=== PATIENT | female | born 1950 | race Caucasian/White ===

== ENCOUNTER 2022-10-06 08:36 | Outpatient (REF) | payer MEDICARE, SELFPAY ==
[2022-10-06 12:11] LABS: Hematocrit 44.6 % (37.0-47.0); Hemoglobin 14.8 g/dl (12.0-16.0); Mean Corpuscular HGB Conc 33.2 g/dl (31.0-35.0); Mean Corpuscular Hemoglobin 30.8 pg (27.0-33.0); Mean Corpuscular Volume 92.7 fL (80.0-98.0); PLT CLUMP 1; Red Blood Count 4.81 X10*6/uL (4.20-5.50); Red Cell Distribution Width 13.4 % (11.0-16.0)
[2022-10-06 12:46] LABS: Alanine Aminotransferase 19 U/L (0-31); Albumin Level 4.2 g/dL (3.5-5.0); Alkaline Phosphatase 55 U/L (39-117); Anion Gap 15 (12-20); Aspartate Amino Transferase 19 U/L (5-31); Bilirubin Total 0.5 mg/dL (0.0-1.0); Blood Urea Nitrogen 14 mg/dL (9-16); Calcium 9.2 mg/dL (8.4-10.2); Carbon Dioxide 26 mmol/L (22-29); Chloride 106 mmol/L (96-108); Cholesterol 195 mg/dL; Estimated Glomerular Filt Rate > 60; Glucose Fasting 103 mg/dL (60-99); HDL Cholesterol 45 mg/dL; LDL Cholesterol Calculated 138 mg/dl; Potassium 4.3 mmol/L (3.3-5.1); Sodium 143 mmol/L (135-145); Total Protein 6.6 g/dL (6.5-8.0); Triglycerides 63 mg/dL
[2022-10-06 12:56] LABS: White Blood Count 7.5 X10*3/uL (4.8-10.8)
[2022-10-06 13:04] LABS: TSH reflex Free T4 2.84 uIU/mL (0.32-4.0)
[2022-10-11 16:03] LABS: Vitamin D 25-OH, D2 <4 ng/mL; Vitamin D 25-OH, D3 34 ng/mL; Vitamin D 25-OH, Total 34 ng/mL (30-100)
== END 2022-10-06 08:37 | disposition home or self-care (01) ==
LOC: HO.WFDLDS 08:36
PROVIDERS: Visit Provider Hospitalist
DX: Z00.00 Encounter for general adult medical examination without abnormal findings (principal); E66.9 Obesity, unspecified; E03.9 Hypothyroidism, unspecified; E55.9 Vitamin D deficiency, unspecified; I10 Essential (primary) hypertension
CPT/HCPCS: 36415; 80053; 80061; 82306; 84443; 85027

== ENCOUNTER 2022-10-13 08:57 | Outpatient (REF) | payer MEDICARE, SELFPAY ==
[2022-10-13 13:26] LABS: Platelet Count (Citrate) 165 X10*3/uL (150-310)
== END 2022-10-13 08:58 | disposition home or self-care (01) ==
LOC: HO.WFDLDS 08:57
PROVIDERS: Visit Provider Hospitalist
DX: R89.9 Unspecified abnormal finding in specimens from other organs, systems and tissues (principal)
CPT/HCPCS: 36415

== ENCOUNTER 2022-11-15 10:16 | Outpatient (REF) | payer MEDICARE, SELFPAY ==
--- NOTE | ~2022-11-15 | MM_ITS ---
EXAMINATION: MM SCREENING DIGITAL BREAST TOMOSYNTHESIS, BILATERAL CLINICAL INFORMATION: Screening. Asymptomatic. The lifetime risk of breast cancer based on the Tyrer-Cuzick Model is 4%. COMPARISON: Outside mammography 07/27/2020, 09/19/2018, 07/19/2017 ([facility]). TECHNIQUE: Digital breast tomosynthesis is performed in both the craniocaudal and mediolateral oblique views along with computer-aided detection (CAD). Synthesized 2D images are generated from the tomosynthesis. Additional left MLO view is provided. FINDINGS: There are scattered areas of fibroglandular density (ACR BI-RADS breast composition Category b). There are no significant masses, abnormal calcifications, or other abnormalities. Parenchymal pattern is similar to prior studies. There is no developing density or architectural abnormality. The axilla and skin contours are unremarkable. No significant changes. MM/MM tomosynthesis screening BI IMPRESSION: No mammographic evidence of malignancy. ASSESSMENT: BI-RADS 1: Negative RECOMMENDATION: Routine annual mammography screening. This patient's information was entered into a reminder system with a target due date for their next mammogram.
== END 2022-11-15 10:17 | disposition home or self-care (01) ==
LOC: HO.MAMMO 10:16
PROVIDERS: PCP Hospitalist; Visit Provider Hospitalist
DX: Z12.31 Encounter for screening mammogram for malignant neoplasm of breast (principal)
CPT/HCPCS: 77063; 77067

== ENCOUNTER 2023-04-15 11:00 | Outpatient (AMB) | payer MEDICARE, SELFPAY ==
[2023-04-15 11:04] VITALS: BP 140/88; PULSE 66; O2SAT 99; BMI 35.7
--- NOTE | 2023-04-15 11:04 | MHC.PC.OV ---
Vital Signs 04/15/23 11:04 Height 5 ft Weight 183 lb BMI 35.7 BP 140/88 H Blood Pressure Location Lt brachial Position Sitting Pulse 66 Pulse Source Pulse Oximeter Pulse Oximetry (%) 99 Oxygen Delivery Method Room Air Intake Visit Reasons: asthma and htn Intake Note: Patient is here for follow up on asthma and hypertension. Patient would like refill of her Combivent, also today. Allergies Sulfa (Sulfonamide Antibiotics) [SULFA(SULFONAMIDE ANTIBIOTICS)] Allergy (Unknown, Unverified 04/15/23 11:09) RASH Tobacco use date assessed: 04/15/23 Fall risk assessment: No Falls in past year Last assessed Fall Risk: 04/15/23 Dental Screening Dental Screen Date: 04/15/23 Did you have a dental visit in the last 12 months?: Yes Did you have a dental problem in the last 6 months where you did not have access to dental care?: No Was dental information given to patient?: Patient has dentist HPI asthma and htn HPI Details 72 y/o female presents to f/u hypertension and asthma. Blood pressure today 140/88. Pt reports she has not been treated with a BP medication before. She does report she has been stressed all year. PMhx: Asthmatic Bronchitis. Stress. HTN. FHx: Mom: CAD, HTN, COPD. Dad: Acytoblastic Anemia. Aunt: Lupus. Soc Hx: Quit cigs age 26. EtOH: Once a year. PFSH Medical History Arthritis Thyroid disease Hypertension Asthma Social History Housing: House Patient Tobacco Use Status: Former Tobacco user (45 years of not smoking) e-Cigarette/Vaping Use: Never Used service: No Current occupational status: retired Cognitive needs: No Hearing needs: No Vision needs: Yes (Patient wears reading glasses.) Questionnaire Thrive Questionnaire Date Thrive assessed: 09/27/22 TOPHER-7 AMB Questionnaire TOPHER-7 Date TOPHER - 7 assessed: 09/27/22 Source: Developed by Drs. kT Israel, Piedad Bass, Wilfredo Valladares and colleagues, with an educational rene from [employer]. ACT Questionnaire In the past 4 weeks, how much of the time did your asthma keep you from getting as much done at work, school or at home?: None of the time During the past 4 weeks, how often have you had shortness of breath?: Not at all (3 times in the month) During the past 4 weeks, how often did your asthma symptoms wake you up at night or earlier than usual in the morning?: Not at all During the past 4 weeks, how often have you had to use your rescue inhaler or nebulizer medication?: Not at all (twice) How would you rate your asthma control during the past 4 weeks?: Well controlled Score: 24 Review of Systems Const Denies chills, Denies fatigue, Denies fever(s), Denies headache(s) and Denies weakness ENT Denies dizziness and Denies headache(s) Card Denies chest pain, Denies lightheadedness, Denies dyspnea and Denies other (Palpitations) Resp Denies cough, Denies dyspnea, Denies wheezing and Denies other ( shortness of breath) Musc Denies numbness and Denies tingling Neuro Denies dizziness, Denies headache(s), Denies numbness, Denies tingling, Denies paresthesias and Denies weakness Psych Denies anxiety and Denies depression Endo Denies fatigue Aller/Immun Denies wheezing Physical exam (Primary Care) Vital Signs: Last Vital Signs Pulse 66 04/15/23 11:04 BP 140/88 H 04/15/23 11:04 Pulse Ox 99 04/15/23 11:04 Oxygen Delivery Method Room Air 04/15/23 11:04 BMI result Body Mass Index 35.7 Tobacco/Smoking Status: Tobacco use Status Tobacco use date assessed 04/15/23 04/15/23 11:19 Patient Tobacco Use Status Former Tobacco user (45 04/15/23 11:19 years of not smoking) e-Cigarette/Vaping Use Never Used 04/15/23 11:19 Thrive Assessment: Date of Thrive Assessment Date Thrive assessed 09/27/22 04/15/23 11:19 Const General: no acute distress and well developed Nutritional Appearance: well nourished Orientation/consciousness: patient oriented x3 HENMT Head: Yes normocephalic and Yes atraumatic Eyes General: appearance normal, both eyes and all related structures Pupils: Equal, round and reactive pupils present EOM: EOMs intact bilaterally Resp Effort & Inspection: normal respiratory effort Auscultation: clear to auscultation bilaterally Cardio Rate: regular rate Rhythm: regular rhythm Heart sounds: S1 normal heart sound present, S2 normal heart sound present, no gallops, no murmurs and no rubs Neuro General: patient oriented x3 and gait normal Cranial nerves: Yes Equal, round and reactive pupils present Psych Affect: normal affect Assessment and Plan Assessment & Plan (1) Hypertension: Code(s): I10 - Essential (primary) hypertension Plan: Blood?pressure?again?in?hypertensive?range. Will?start?lisinopril. (2) Asthma: Code(s): J45.909 - Unspecified asthma, uncomplicated Plan: History?of?asthma/asthmatic?bronchitis Patient?does?not?smoke Lungs?are?clear Continue?Combivent.??Gave?patient?an?albuterol?inhaler?as?well (3) Hypothyroidism (acquired): Code(s): E03.9 - Hypothyroidism, unspecified Plan: History?of?hypothyroidism?and?she?is?on?levothyroxine. Check?labs Orders: Orders Complete Blood Count Auto Diff Today Z00.00 - Encounter for general adult medical examination without abnormal findings Microalbumin, Random (w Creat) Today I10 - Essential (primary) hypertension Lipid Panel Today Z00.00 - Encounter for general adult medical examination without abnormal findings Triiodothyronine T3 Total Today E03.9 - Hypothyroidism, unspecified Thyroid Stimulating Hormone Today E03.9 - Hypothyroidism, unspecified Free T4 (Free Thyroxine) Today E03.9 - Hypothyroidism, unspecified Vitamin D 25-OH Total Today E55.9 - Vitamin D deficiency, unspecified Comprehensive [place]. Panel Fast Today Z00.00 - Encounter for general adult medical examination without abnormal findings UA and rflx microscopic Today Z00.00 - Encounter for general adult medical examination without abnormal findings Medications: New lisinopril 10 mg PO DAILY 90 tabs 2RF 90 days albuterol sulfate 90 mcg/actuation (ProAir HFA) 2 puffs inhalation Q4-6H PRN 8.5 grams 0RF shortness of breath or wheezing 30 days Refilled Combivent Respimat 20-100 mcg/actuation (ipratropium-albuterol) 1 puff PO Q6H 4 grams 3RF NS Coding Level of Care Code Est Pt Level 3 (32891) Diagnoses Hypertension I10 Asthma J45.909 Hypothyroidism (acquired) E03.9
== END 2023-04-15 11:49 | disposition home or self-care (01) ==
PROVIDERS: PCP Hospitalist; Visit Provider Family Medicine
DX: I10 Essential (primary) hypertension (principal); J45.909 Unspecified asthma, uncomplicated; E03.9 Hypothyroidism, unspecified
CPT/HCPCS: 99213

== ENCOUNTER 2023-07-25 11:47 | Outpatient (AMB) | payer MEDICARE, SELFPAY ==
--- NOTE | 2023-07-25 11:49 | MHC.PC.OV ---
Vital Signs 07/25/23 12:08 Height 5 ft Weight 177 lb BMI 34.6 BP 128/64 Blood Pressure Location Lt brachial Position Sitting Respiration 13 Pulse 76 Pulse Source Pulse Oximeter Pulse Oximetry (%) 98 Oxygen Delivery Method Room Air Intake Visit Reasons: CPE with f/u labs and health maint. Intake Note: Patient is here for her physical and she reports she has her usual pains and whatever else there is. Patient reports since taking the lisinopril she has notice shes urinating a lot more often. Psychiatric Tech Required: No Accompanied by: Self / Same As Patient Allergies Sulfa (Sulfonamide Antibiotics) [SULFA(SULFONAMIDE ANTIBIOTICS)] Allergy (Unknown, Verified 07/25/23 12:12) RASH Tobacco use date assessed: 07/25/23 Fall risk assessment: No Falls in past year Last assessed Fall Risk: 07/25/23 Dental Screening Dental Screen Date: 07/25/23 Did you have a dental visit in the last 12 months?: Yes Did you have a dental problem in the last 6 months where you did not have access to dental care?: No Was dental information given to patient?: Patient has dentist HPI CPE with f/u labs and health maint. HPI Details 72 y/o female presents for a CPE with f/u labs and health maintenance. No recent labs to review. Last set of labs drawn in September. Blood pressure today 128/64. She is on lisinopril 10mg daily. She feels lisinopril is causing issues with frequent urination. She walks for exercise 3x a week. Last mammogram 11/15/22 and was fine. Pt reports last colonoscopy was at [facility] and had been a long time ago. [facility] Medical History Arthritis Thyroid disease Hypertension Asthma Surgical History (Updated 07/25/23 @ 12:14 by Jacklyn Zhu CMA) No pertinent past surgical history Social History (Updated 07/25/23 @ 12:17 by Jacklyn Zhu CMA) Household Members: Spouse and Children Both parents involved: No Caregiver staying overnight: No Housing: House Are you a primary career coach to a significant other at home: No Do you presently have visiting nurse or other home services: No 75 years or older and lives alone: No Alcohol intake: current Alcohol intake frequency: holidays/special occasions only Alcohol type: beer Patient Tobacco Use Status: Former Tobacco user (45 years of not smoking) e-Cigarette/Vaping Use: Never Used service: No Current occupational status: retired Current occupational exposures/hazards: No Sexual orientation: Unable to collect Gender identity: Unable to collect Cognitive needs: No Hearing needs: No Vision needs: Yes (Patient wears reading glasses.) Questionnaire PHQ-9 Over the last 2 weeks, how often have you been bothered by any of the following problems? 1. Little interest or pleasure in doing things: not at all 2. Feeling down, depressed, or hopeless: not at all 3. Trouble falling or staying asleep, or sleeping too much: nearly every day (staying asleep) 4. Feeling tired or having little energy: not at all 5. Poor appetite or overeating: several days 6. Feeling bad about yourself - or that you are a failure or have let yourself or your family down: not at all 7. Trouble concentrating on things, such as reading the newspaper or watching television: not at all 8. Moving or speaking so slowly that other people could have noticed. Or the opposite - being so fidgety or restless that you have been moving around a lot more than usual: not at all 9. Thoughts that you would be better off or of hurting yourself in some way: not at all Total score: 4 Depression Screening Interpretation: Negative Depression Screening Done: Yes 70224 - PHQ-9 Billing: Yes Source: Developed by Drs. Tk Israel, Piedad Bass, Wilfredo Valladares and colleagues, with an educational rene from [employer]. Thrive Questionnaire Date Thrive assessed: 09/27/22 TOPHER-7 AMB Questionnaire TOPHER-7 Date TOPHER - 7 assessed: 07/25/23 Feeling nervous, anxious, or on edge: 0 = Not at all Not being able to stop or control worryin = Not at all Worrying too much about different things: 0 = Not at all Trouble relaxin = Not at all Being so restless that it is hard to sit still: 3 = Nearly every day Becoming easily annoyed or irritable: 1 = Several days Feeling afraid as if something awful might happen: 0 = Not at all Total TOPHER-7 score (0-4 normal; 5-9 mild; 10-14 moderate; 15-21 severe): 4 Source: Developed by Drs. Tk Israel, Piedad Bass, Wilfredo Valladares and colleagues, with an educational rene from [employer]. TOPHER-7 Assessment Billing TOPHER-7 Assessment Tool: TOPHER-7 Assessment [id number] Review of Systems Const Denies chills, Denies fatigue, Denies fever(s), Denies headache(s) and Denies weakness Eyes Denies change in vision ENT Denies dizziness, Denies headache(s), Denies hearing loss, Denies nasal congestion, Denies sinus pain, Denies sinus pressure and Denies sore throat Card Denies chest pain, Denies lightheadedness, Denies dyspnea and Denies other (palpitations) Resp Denies cough, Denies dyspnea and Denies wheezing GI Denies abdominal pain, Denies melena, Denies hematochezia, Denies change in bowel habits, Denies dyspepsia and Denies nausea Denies hematuria and Denies dysuria Musc Denies abnormal gait, Denies myalgias, Denies arthralgias, Denies numbness and Denies tingling Skin/Breast Denies rash, Denies unusual bruising and Denies wounds Neuro Denies abnormal gait, Denies dizziness, Denies headache(s), Denies memory loss, Denies numbness, Denies Sensory deficit (Neuro), Denies tingling and Denies weakness Psych Denies anxiety, Denies depression and Denies memory loss Endo Denies cold intolerance, Denies fatigue, Denies heat intolerance, Denies polydipsia and Denies polyuria Alireza/Lymph Denies easy bleeding and Denies easy bruising Aller/Immun Denies wheezing Physical exam (Primary Care) Vital Signs: Last Vital Signs Pulse 76 07/25/23 12:08 Resp 13 07/25/23 12:08 BP 128/64 07/25/23 12:08 Pulse Ox 98 07/25/23 12:08 Oxygen Delivery Method Room Air 07/25/23 12:08 BMI result Body Mass Index 34.6 Tobacco/Smoking Status: Tobacco use Status Tobacco use date assessed 07/25/23 07/25/23 12:22 Patient Tobacco Use Status Former Tobacco user (45 07/25/23 12:17 years of not smoking) e-Cigarette/Vaping Use Never Used 07/25/23 12:17 PHQ-9: PHQ-9 Score PHQ-9: Total score 4 07/25/23 12:49 Depression Screening Interpretation: Negative Thrive Assessment: Date of Thrive Assessment Date Thrive assessed 09/27/22 07/25/23 11:49 Const General: no acute distress, well developed, alert and awake Nutritional Appearance: well nourished Orientation/consciousness: patient oriented x3 HENMT Head: Yes normocephalic and Yes atraumatic Ears: hearing grossly normal bilaterally and TM's normal bilaterally General nose exam: Normal external nose present and Normal nares present Mouth: Normal oral and palatal mucosa present and moist mucous membranes Teeth and gingiva: dentition normal Throat: Yes posterior oropharynx normal Eyes General: appearance normal, both eyes and all related structures Pupils: Equal, round and reactive pupils present and Pupil accommodation reflex normal EOM: EOMs intact bilaterally Neck Neck: Yes normal visual inspection, Yes no lymphadenopathy and Yes trachea midline Thyroid: Thyroid normal Carotids: no bruits Lymphatic: no lymphadenopathy noted Chest Chest palpation & inspection: normal inspection of the chest Resp Effort & Inspection: normal respiratory effort Auscultation: clear to auscultation bilaterally Cardio Rate: regular rate Rhythm: regular rhythm Heart sounds: S1 normal heart sound present, S2 normal heart sound present, no gallops, no murmurs and no rubs Bruits: no abdominal aortic bruits and no carotid bruits GI Palpation (GI): No Abdominal aortic bruit present, Soft to palpation, nontender, No hepatosplenomegaly present and No Rebound tenderness present Auscultation: normal bowel sounds General: Yes no CVA tenderness Back/Spine/Pelvis Back: no CVA tenderness Cervical Spine: cervical ROM normal and No Cervical spine tenderness Thoracic/Lumbar Spine: thoraco-lumbar ROM normal, No pain with thoraco-lumbar ROM, No thoracic spinal tenderness and No lumbar spinal tenderness Skin Lesions: no lesions Rashes: no rashes Trauma: no lacerations or abrasions Wounds: no wounds Nails: normal Neuro General: patient oriented x3 Cranial nerves: Yes Equal, round and reactive pupils present Cognition (Neuro): normal cognition Gait exam (Neuro): Normal gait present Motor exam (neuro): 5/5 motor strength present throughout Sensory Exam: No Sensory deficit (Neuro) Deep tendon reflexes (DTR's): Right patellar reflex intensity grade: 2+ and Left patellar reflex intensity grade: 2+ Extrem General: Yes normal to inspection and No edema Psych Appearance: grossly normal Affect: normal affect Attitude: cooperative Thought process: Normal thought process present Assessment and Plan Assessment & Plan (1) Adult general medical exam: Code(s): Z00.00 - Encounter for general adult medical examination without abnormal findings Plan: 72-year-old?female?presents?for?complete?physical?exam Encouraged?healthy?diet?with?active?lifestyle?and?plenty?of?exercise (2) Hypertension: Code(s): I10 - Essential (primary) hypertension Plan: Blood?pressure?is?controlled?but?she?feels?that?the?lisinopril?is?causing?issues?with?frequent?urination. Will?switch?to?losartan (3) Screening mammogram for breast cancer: Code(s): Z12.31 - Encounter for screening mammogram for malignant neoplasm of breast Plan: Last?mammogram?May?2022 Repeat?mammogram?in?November?2023 (4) Screening for colon cancer: Code(s): Z12.11 - Encounter for screening for malignant neoplasm of colon Plan: Patient?thinks?she?had?her?[facility] Will?request?report (5) Screening for osteoporosis: Code(s): Z13.820 - Encounter for screening for osteoporosis Plan: Last?bone?density?test?greater?than?2?years?ago Bone?density?test?ordered Orders: Orders Thyroid Stimulating Hormone Today E03.9 - Hypothyroidism, unspecified UA and rflx microscopic Today Z00.00 - Encounter for general adult medical examination without abnormal findings Vitamin D 25-OH Total Today E55.9 - Vitamin D deficiency, unspecified XR DEXA axial skeleton Today M81.0 - Age-related osteoporosis without current pathological fracture Comprehensive [place]. Panel Fast Today Z00.00 - Encounter for general adult medical examination without abnormal findings Microalbumin, Random (w Creat) Today I10 - Essential (primary) hypertension Lipid Panel Today Z00.00 - Encounter for general adult medical examination without abnormal findings Hemoglobin A1c Today R73.01 - Impaired fasting glucose Free T4 (Free Thyroxine) Today E03.9 - Hypothyroidism, unspecified Triiodothyronine T3 Total Today E03.9 - Hypothyroidism, unspecified MM tomosynthesis screening BI Today Z12.31 - Encounter for screening mammogram for malignant neoplasm of breast Medications: New losartan 50 mg PO DAILY 90 tabs 2RF 90 days Discontinued lisinopril Discontinued Reason: Doctor's Order 10 mg PO DAILY 90 days 90 tabs 2RF Coding Level of Care Code Est Pt Level 3 (15253) Est Pt Prev Care >65y(59526) Diagnoses Adult general medical exam Z00.00 Hypertension I10 Screening mammogram for breast cancer Z12.31 Screening for colon cancer Z12.11 Screening for osteoporosis Z13.820 Additional Codes TOPHER-7 Assessment Billing - TOPHER-7 Assessment Tool: TOPHER-7 Assessment 95233 ([id number])
[2023-07-25 12:08] VITALS: BP 128/64; PULSE 76; RESP 13; O2SAT 98; BMI 34.6
== END 2023-07-25 13:04 | disposition home or self-care (01) ==
PROVIDERS: PCP Hospitalist; Visit Provider Family Medicine
DX: Z00.00 Encounter for general adult medical examination without abnormal findings (principal); I10 Essential (primary) hypertension; Z12.31 Encounter for screening mammogram for malignant neoplasm of breast; Z12.11 Encounter for screening for malignant neoplasm of colon; Z13.820 Encounter for screening for osteoporosis
CPT/HCPCS: 99213; 99397

== ENCOUNTER 2023-08-08 08:22 | Outpatient (REF) | payer MEDICARE, SELFPAY ==
[2023-08-08 12:16] LABS: Estimated Average Glucose 114 mg/dL; Hemoglobin A1c % 5.6 % (<6.0)
[2023-08-08 12:29] LABS: Alanine Aminotransferase 13 U/L (0-31); Albumin Level 4.2 g/dL (3.5-5.0); Alkaline Phosphatase 53 U/L (39-117); Anion Gap 11 (12-20); Aspartate Amino Transferase 15 U/L (5-31); Bilirubin Total 0.5 mg/dL (0.0-1.0); Blood Urea Nitrogen 13 mg/dL (9-16); Calcium 9.5 mg/dL (8.4-10.2); Carbon Dioxide 29 mmol/L (22-29); Chloride 105 mmol/L (96-108); Cholesterol 200 mg/dL (<200); Estimated Glomerular Filt Rate > 60; Free T4 (Free Thyroxine) 1.09 ng/dL (0.71-1.85); Glucose Fasting 110 mg/dL (60-99); HDL Cholesterol 49 mg/dL (>40); LDL Cholesterol Calculated 130 mg/dL (<100); Potassium 4.3 mmol/L (3.3-5.1); Sodium 141 mmol/L (135-145); Total Protein 6.9 g/dL (6.5-8.0); Triglycerides 106 mg/dL (<150); Vitamin D 25-OH Total 94.3 ng/mL (>30)
[2023-08-08 14:21] LABS: Appearance Urine Clear; Color Urine Yellow; Glucose Urine UA Negative (Negative); Leukocyte Esterase Urine Negative (Negative); Nitrite Urine Negative (Negative); PH 8.5 (5.0-9.0); Specific Gravity - Urine 1.015 (1.005-1.025); Urine Blood Negative (Negative); Urine Ketones Negative (Negative); Urine Protein Negative (Neg-Trace)
[2023-08-08 15:41] LABS: Creatinine Urine 125.87 mg/dL; Microalbum/Creatinine Ratio Ur 4.7 ug/mg cr (<30)
[2023-08-09 11:23] LABS: Triiodothyronine T3 Total 103 ng/dL (76-181)
== END 2023-08-08 08:23 | disposition home or self-care (01) ==
LOC: HO.WFDLDS 08:22
PROVIDERS: Visit Provider Family Medicine
DX: Z00.00 Encounter for general adult medical examination without abnormal findings (principal); E03.9 Hypothyroidism, unspecified; I10 Essential (primary) hypertension; R73.01 Impaired fasting glucose; E55.9 Vitamin D deficiency, unspecified
CPT/HCPCS: 36415; 80053; 80061; 81003; 82043; 82306; 82570; 83036; 84439; 84443; 84480

== ENCOUNTER 2023-08-17 12:39 | Outpatient (REF) | payer MEDICARE, SELFPAY ==
--- NOTE | ~2023-08-17 | MM_ITS ---
EXAMINATION: BONE DENSITOMETRY CLINICAL INDICATION: Age-related osteoporosis without current pathological fracture. COMPARISON: This is the patient's baseline examination. TECHNIQUE: Using a [employer] DXA System (software version: 13.1) manufactured by [employer], dual-energy x-ray absorptiometry was performed of the lumbar spine and left hip. The images are of good technical quality. Summary results are attached. FINDINGS: AP SPINE L1-L4: BMD 1.334 g/cm2, Z-score 2.5, T-score 1.3, normal. LEFT FEMUR, NECK: BMD 0.746 g/cm2, Z-score -0.6, T-score -2.1, osteopenia. LEFT FEMUR, TOTAL: BMD 0.867 g/cm2, Z-score 0.1, T-score -1.1, osteopenia. IDENTIFIED RISK FACTORS: Height loss. Menopause. HISTORY OF FRACTURE: None listed. MEDICATIONS: Calcium supplement and/or multivitamin. Vitamin D. MM/XR DEXA axial skeleton IMPRESSION: 1. DIAGNOSIS: Osteopenia based on the lowest T-score value of -2.1 in the femoral neck applying World Health Organization criteria. 2. 10-YEAR FRACTURE RISK PREDICTION, FRAX: Major osteoporotic fracture (clinical spine, forearm, hip or shoulder) 12.3%. Hip fracture 2.8%. 3. Treatment Recommendations: NOF guidelines recommend consideration for treatment in postmenopausal women and men age 50 and older presenting with the following: -A hip or vertebral (clinical or morphometric) fracture. -T-score less than or equal to -2.5 at the femoral neck or spine after appropriate evaluation to exclude secondary causes. -Low bone mass at the hip or spine and a 10-year fracture probability by FRAX of greater than or equal to 3% for hip fracture or greater than or equal to 20% for major osteoporotic fracture based on the [place] adapted WHO algorithm. 4. Other Recommendations: All treatment decisions require clinical judgment and consideration of individual patient factors, including patient preferences, comorbidities, previous drug use, risk factors not captured in the FRAX model (e.g. frailty, falls, vitamin D deficiency, increased bone turnover, interval significant decline in bone density) and possible under or overestimation of fracture risk by FRAX. Additional medical evaluation for secondary cause of low bone mineral density may be appropriate. FUTURE SCAN RECOMMENDATION: People with diagnosed cases of osteoporosis or at high risk for fracture should have regular bone mineral density tests. For patients eligible for Medicare, routine testing is allowed once every 2 years. The testing frequency can be increased to one year for patients who have rapidly progressing disease, those who are receiving or discontinuing medical therapy to restore bone mass, or have additional risk factors.
== END 2023-08-17 12:40 | disposition home or self-care (01) ==
LOC: HO.MAMMO 12:39
PROVIDERS: PCP Family Medicine; Visit Provider Family Medicine
DX: Z13.820 Encounter for screening for osteoporosis (principal); Z78.0 Asymptomatic menopausal state; M81.0 Age-related osteoporosis without current pathological fracture
CPT/HCPCS: 77080

== ENCOUNTER 2023-08-25 16:31 | Outpatient (AMB) | payer MEDICARE, SELFPAY ==
--- NOTE | 2023-08-25 16:27 | MHC.PC.OV ---
Intake Visit Reasons: f/u CPE-labs Intake Note: Patient is calling to follow up on labs Allergies Sulfa (Sulfonamide Antibiotics) [SULFA(SULFONAMIDE ANTIBIOTICS)] Allergy (Unknown, Verified 08/25/23 16:28) RASH Tobacco use date assessed: 08/25/23 Fall risk assessment: No Falls in past year Last assessed Fall Risk: 08/25/23 Dental Screening Dental Screen Date: 08/25/23 Did you have a dental visit in the last 12 months?: Yes Did you have a dental problem in the last 6 months where you did not have access to dental care?: No Was dental information given to patient?: Patient has dentist HPI f/u CPE-labs HPI Details 72 y/o female presents to f/u CPE-labs via telemedicine. Labs were drawn 08/08/23. Reviewed labs with pt. Elevated fasting glucose of 110 and A1c 5.6%. Triglycerides 106. TC 200. LDL 130. HDL 49. She reports she has a cold today. She states her losartan has been working better for her than lisinopril. [facility] Medical History Arthritis Thyroid disease Hypertension Asthma Surgical History No pertinent past surgical history Social History Household Members: Spouse and Children Both parents involved: No Caregiver staying overnight: No Housing: House Are you a primary senior care assistant to a significant other at home: No Do you presently have visiting nurse or other home services: No 75 years or older and lives alone: No Alcohol intake: current Alcohol intake frequency: holidays/special occasions only Alcohol type: beer Patient Tobacco Use Status: Former Tobacco user (45 years of not smoking) e-Cigarette/Vaping Use: Never Used service: No Current occupational status: retired Current occupational exposures/hazards: No Sexual orientation: Unable to collect Gender identity: Unable to collect Cognitive needs: No Hearing needs: No Vision needs: Yes (Patient wears reading glasses.) Questionnaire Thrive Questionnaire Date Thrive assessed: 09/27/22 TOPHER-7 AMB Questionnaire TOPHER-7 Date TOPHER - 7 assessed: 07/25/23 Source: Developed by Drs. Tk LPiedad Kincaid Kurt Kroenke and colleagues, with an educational rene from [employer]. Physical exam (Primary Care) Tobacco/Smoking Status: Tobacco use Status Tobacco use date assessed 08/25/23 08/25/23 16:30 Patient Tobacco Use Status Former Tobacco user (45 08/25/23 16:30 years of not smoking) e-Cigarette/Vaping Use Never Used 08/25/23 16:30 Thrive Assessment: Date of Thrive Assessment Date Thrive assessed 09/27/22 08/25/23 16:30 Telehealth Telehealth Location of provider rendering services: practice address Location of patient: address on file Patient Identification confirmed using: Name, : Yes Telehealth method: voice only Patient verbally consented to treatment: Yes Patient verbally consented to billing insurance company: Yes Patient informed of any privacy concerns related to visit: Yes Minutes spent on Phone/Video with Pt.: 9 Assessment and Plan Assessment & Plan (1) Viral illness: Code(s): B34.9 - Viral infection, unspecified Plan: Patient?notes?mild?cold?which?seems?to?be?getting?better Encouraged?plenty?of?fluids?and?plenty?of?rest (2) Hypercholesterolemia: Code(s): E78.00 - Pure hypercholesterolemia, unspecified Plan: TC?and?LDL?cholesterol?borderline HDL?ratios?are?good?and?triglycerides?are?in?normal?range No?indication?at?this?point?for?a?medication-advised?diet?lower?in?saturated?fats?and?cholesterol (3) Elevated fasting glucose: Code(s): R73.01 - Impaired fasting glucose Plan: She?has?had?mildly?elevated?fasting?blood?sugars?and?I ordered?an?A1c?which?was?5.6%;?top-normal Encouraged?a?diet?lower?in?sugars?and?starches Encouraged?exercise?and?weight?control. (4) Hypertension: Code(s): I10 - Essential (primary) hypertension Plan: Blood?pressure?at?home?appears?controlled.??I?had?switched?her?lisinopril?to?losartan?due?to?adverse?effects. Patient?notes?that?she?is?tolerating?losartan?well. Continue?losartan?as?prescribed (5) Screening for osteoporosis: Code(s): Z13.820 - Encounter for screening for osteoporosis Plan: Bone?density?testing?showed?osteopenia She?is?already?taking?calcium?and?vitamin-D?I?advised?some?weight-bearing?exercise?as?well We?will?continue?to?monitor?every?2?years Coding Level of Care Code Tele Est Pt Level 2 (74567) Diagnoses Viral illness B34.9 Hypercholesterolemia E78.00 Elevated fasting glucose R73.01 Hypertension I10 Screening for osteoporosis Z13.820
== END 2023-08-25 17:00 ==
LOC: HO.HMGFM 16:31
PROVIDERS: PCP Family Medicine; Visit Provider Family Medicine
DX: B34.9 Viral infection, unspecified (principal); E78.00 Pure hypercholesterolemia, unspecified; R73.01 Impaired fasting glucose; I10 Essential (primary) hypertension; Z13.820 Encounter for screening for osteoporosis
CPT/HCPCS: G2012

== ENCOUNTER 2023-11-16 09:04 | Outpatient (AMB) | payer MEDICARE, SELFPAY ==
--- NOTE | 2023-11-16 09:16 | MHC.OFFWIV ---
Intake Vital Signs 11/16/23 09:29 Height 5 ft Weight 174 lb BMI 34.0 BP 138/74 Blood Pressure Location Rt radial Position Sitting Respiration 18 Pulse 71 Pulse Source Pulse Oximeter Temp 98.5 F Temp Source Oral Pulse Oximetry (%) 97 Oxygen Delivery Method Room Air Intake Visit Reasons: coughing, phlegm, cant sleep, wheezing Intake Note: Cough, yellow phlegm, wheezing over a month. Went to urgent care about two weeks ago. Did not get tested for covid, rsv, or flu. Saw brother last week at [facility] last week and is wondering if she got exposed to Covid. Patient Tobacco Use Status: Former Tobacco user (45 years of not smoking) Allergies codeine Allergy (Mild, Verified 11/16/23 09:23) Nightmare Sulfa (Sulfonamide Antibiotics) [SULFA(SULFONAMIDE ANTIBIOTICS)] Allergy (Unknown, Verified 11/16/23 09:22) RASH Do you need a note to return to daycare/school/sports/work: No HPI coughing, phlegm, cant sleep, wheezing HPI Details Patient is a 73-year-old female with a significant past medical history of hypertension, asthma, hypothyroidism presenting today with complaints of being sick for the last month. She states that she was seen by urgent care a couple weeks ago and tested for RSV, COVID and flu which were negative. She states she was given albuterol and tessalon perles and was told it was just viral. She states they told her her lungs were clear. She denies having a chest xray. She states she has not gotten better at all. She states that her cough is productive of yellow phlegm and she is wheezing. She is using albuterol and combivent. She gets some short term relief. No fever or chills. No n/v/d. Denies any sinus pain, pressure, ear pain or sore throat. CV: bp today in office is 128/64. Tolerates losartan well. [facility] Medical History Arthritis Thyroid disease Hypertension Asthma Surgical History No pertinent past surgical history Social History Household Members: Spouse and Children Both parents involved: No Caregiver staying overnight: No Housing: House Are you a primary director of medicare to a significant other at home: No Do you presently have visiting nurse or other home services: No 75 years or older and lives alone: No Alcohol intake: current Alcohol intake frequency: holidays/special occasions only Alcohol type: beer Patient Tobacco Use Status: Former Tobacco user (45 years of not smoking) e-Cigarette/Vaping Use: Never Used service: No Current occupational status: retired Current occupational exposures/hazards: No Sexual orientation: Unable to collect Gender identity: Unable to collect Cognitive needs: No Hearing needs: No Vision needs: Yes (Patient wears reading glasses.) Physical Exam Vital Signs: Last Vital Signs Temp 98.5 F 11/16/23 09:29 Pulse 71 11/16/23 09:29 Resp 18 11/16/23 09:29 BP 138/74 11/16/23 09:29 Pulse Ox 97 11/16/23 09:29 Oxygen Delivery Method Room Air 11/16/23 09:29 BMI result Body Mass Index 34.0 Const Orientation/consciousness: patient oriented x3 HEENT Ears: hearing grossly normal bilaterally and TM's normal bilaterally General nose exam: Normal nasal mucous membranes and turbinates present Face and sinus: Yes sinuses nontender Throat: Yes posterior oropharynx normal Neck Thyroid: Thyroid normal Lymphatic: no lymphadenopathy noted Resp Auscultation: crackles on the left in the lower lung jones and wheezes throughout Cardio Rate: regular rate Rhythm: regular rhythm Heart sounds: S1 normal heart sound present and S2 normal heart sound present GI Inspection: Yes normal to inspection Palpation (GI): Soft to palpation and Other GI palpation findings present (nontender, no cva tenderness) Auscultation: normoactive bowel sounds Rectal Exam - Female: deferred Skin General skin exam: no rashes or lesions noted Neuro General: patient oriented x3, gait normal and no focal motor deficits Assessment & Plan Assessment & Plan (1) Lung infection: Code(s): J18.9 - Pneumonia, unspecified organism Plan: cxr ordered. crackles left base. will start pred taper and doxy. will follow up pending test results or if anything worsens or changes. pt understands and agrees with the plan. (2) Mild intermittent asthma with exacerbation: Code(s): J45.21 - Mild intermittent asthma with (acute) exacerbation Plan: see above. (3) Hypertension: Code(s): I10 - Essential (primary) hypertension Qualifiers: Hypertension type: primary hypertension Qualified Code(s): I10 - Essential (primary) hypertension Plan: continue losartan 50 mg. Orders: Orders XR chest 2V Today J18.9 - Pneumonia, unspecified organism, J45.21 - Mild intermittent asthma with (acute) exacerbation Medications: New prednisone take 3 tab po x 3 days, take 2 tab po x 3 days, take 1 tab po x 3 days; 18 tabs 0RF doxycycline hyclate 100 mg PO BID 10 days 20 tabs 0RF Coding Level of Care Code Est Pt Level 4 (35395) Diagnoses Lung infection J18.9 Mild intermittent asthma with exacerbation J45.21 Primary hypertension I10 Hypertension type: primary hypertension
[2023-11-16 09:29] VITALS: BP 138/74; PULSE 71; RESP 18; TEMP 36.9; O2SAT 97; BMI 34.0
== END 2023-11-16 10:05 | disposition home or self-care (01) ==
PROVIDERS: PCP Family Medicine; Visit Provider Physician Assistant
DX: J18.9 Pneumonia, unspecified organism (principal); J45.21 Mild intermittent asthma with (acute) exacerbation; I10 Essential (primary) hypertension
CPT/HCPCS: 99214

== ENCOUNTER 2023-11-17 09:49 | Outpatient (REF) | payer MEDICARE, SELFPAY ==
--- NOTE | ~2023-11-17 | XR_ITS ---
EXAMINATION: XR CHEST 2 VIEW CLINICAL INFORMATION: Pneumonia COMPARISON: None available TECHNIQUE: PA and lateral views of the chest obtained. FINDINGS: The lungs are clear. There are no pleural effusions. The cardiomediastinal silhouette is normal. XR/XR chest 2V IMPRESSION: No acute disease.
== END 2023-11-17 09:50 | disposition home or self-care (01) ==
LOC: HO.XRAY 09:49
PROVIDERS: PCP Family Medicine; Visit Provider Physician Assistant
DX: J18.9 Pneumonia, unspecified organism (principal); J45.21 Mild intermittent asthma with (acute) exacerbation
CPT/HCPCS: 71046

== ENCOUNTER 2023-12-07 13:00 | Outpatient (REF) | payer MEDICARE, SELFPAY | END 2023-12-07 13:01 | disposition home or self-care (01) | LOC: HO.MAMMO 13:00 | PROVIDERS: PCP Family Medicine; Visit Provider Family Medicine | DX: Z12.31 Encounter for screening mammogram for malignant neoplasm of breast (principal) | CPT/HCPCS: 77063; 77067 ==

== ENCOUNTER → 2023-12-07 13:00 | Outpatient (BNV) | payer MEDICARE, SELFPAY | PROVIDERS: PCP Family Medicine; Visit Provider Radiology Diagnostic Radiology | DX: Z12.31 Encounter for screening mammogram for malignant neoplasm of breast (principal) | CPT/HCPCS: 77063; 77067 ==

== ENCOUNTER 2024-08-01 08:20 | Outpatient (AMB) | payer MEDICARE, SELFPAY ==
--- NOTE | 2024-08-01 08:24 | A.OFFVIS_ITS ---
Intake Vital Signs 08/01/24 08:30 Height 5 ft Weight 184 lb BMI 35.9 BP 117/66 Blood Pressure Location Lt brachial Position Sitting Respiration 12 Pulse 81 Pulse Source Pulse Oximeter Pulse Oximetry (%) 98 Oxygen Delivery Method Room Air Intake Visit Reasons: CPE with f/u labs and health maint. - see comments Intake Note: awv visit and follow up labs Phytopathologist Required: No Allergies codeine Allergy (Mild, Verified 08/01/24 08:39) Nightmare Sulfa (Sulfonamide Antibiotics) [SULFA(SULFONAMIDE ANTIBIOTICS)] Allergy (Unknown, Verified 08/01/24 08:39) RASH Medication List - Last Reconciled 08/01/24 by Melissa Catherine, DATA SCIENCE AND IOT MANAGER- albuterol sulfate 90 mcg/actuation (ProAir HFA) 2 puffs inhalation Q4-6H PRN 30 days calcium carbonate (Antacid (calcium carbonate)) 200 mg PO BID cetirizine (Zyrtec) 10 mg PO DAILY PRN Combivent Respimat 20-100 mcg/actuation (ipratropium-albuterol) 1 puff PO Q6H NS levothyroxine 88 mcg PO DAILY losartan 50 mg PO DAILY 90 days multivitamin 1 tab PO DAILY Do you need a note to return to daycare/school/sports/work: No HPI HPI Comments History of Present Illness Details 73 y/o with osteopenia, hypothyroid, HLD , Vit D def, HTN, obesity, IFG, stress urinary incont Here today for AWV. The Medicare Annual Wellness Visit (AWV) is a yearly appointment with a health professional to identify health risks and help reduce them and to create or update a personalized prevention plan. During a Medicare AWV, health professionals should also review any current opioid prescriptions, detect any cognitive impairment, and establish or update medical and family history. SurgHx: Y, no changes FHx: Mom: CAD, HTN, COPD. Dad: Acytoblastic Anemia. Aunt: Lupus. brother w Afib; brother w afib and alzheimers SocHx: Y, no changes Health Maintenance: See scanned preventative medicine assessment with personalized health plan and screening schedule. Colon: overdue per insurance - cologaurd ordered today; reports normal hx; no family hx of colon ca. Mammo 12/07/23 DEXA 08/17/23 PAP: Vaccines: COVID-19 Pfizer (1)04/21/23, COVID-19 Jansse (2) 06/20/21, PCV13 (1) 07/05/20, PCV20 (1) 04/21/23, RSV Bivalent (1) 04/21/23, Tdap admin today, Flu AAA screen: n/a EKG: not done [place] [facility] of Care: Optho Visual Acuity: completed today. Next September 2024 Hearing Screening: no concerns ACP: Does not have HCP - form given; has living will - Full code Dietary/Nutrition/Exercise Edu provided: Y During the course of the visit the patient was educated and counseled about appropriate screening and preventative services. Patient instructions were provided to the patient in written or electronic format. I have reviewed and verified the above information. History of Present Illness The patient is a 73-year-old female presenting with an annual Medicare wellness visit and follow up of multiple chronic conditions. She has a history of ess ential hypertension managed with Losartan, hypothyroidism managed with Levothyroxine, osteopenia, hyperlipidemia, vitamin D deficiency, and impaired fasting glucose. The patient's blood pressure condition and thyroid management have been long-standing. Her condition of osteopenia was evaluated last year with a bone density scan, and her hyperlipidemia is routinely checked through lab work. She has experienced episodes of asthmatic bronchitis in the past, particularly exacerbated during cold weather. Her anxiety is persistent but reportedly mild and does not interfere with social activities. She self-manages it without difficulties. She experiences osteoarthritis in her right knee which sometimes causes discomfort, and has had a tooth extraction a few months ago with no current complaints. She reports mild urinary incontinence, notably when the weather is cold, and continues to manage it. She follows up regularly for screenings and vaccination adherence, including a recent flu shot and plans for a tetanus shot today. Social History - Lives independently, manages household tasks including cooking and cleaning. - Manages her own finances and is active ly driving, wearing a seatbelt regularly. - Non-smoker for 47 years. - Engages in physical activity such as w alking around the mall and neighborhood and attempts to use a bike when possible. - Experiences mild anxiety but remains s ocially active. - Exhibits independence in meal preparat ion and maintains a balanced diet with supplements including multivitamins, Vitamin C, D, and E. - Family history includes a brother with Alzheimer's and another with atrial fibrillation. Results - Labs: A1c of 5.5% (previously 5.6% las t year). Discussion Notes During the visit, I discussed the importance of maintaining regular screenings for chronic conditions, including bone density, mammograms, and colon cancer screening through the Cologuard test. The patient was updated on her current A1c results showing stable glycemic control. We explored options for mitigating inhaler costs, discussing a referral to a community navigation team for support. I emphasized adherence to prescribed medications, including hypertensive and t hyroid medications, highlighting their role in managing chronic conditions effectively. The patient is advised to monitor symptoms of asthmatic bronchitis and seek care for exacerbations. I provided education on managing anxiety and reassured her regarding current health status. Follow-up in six months is advised to reassess health status and chronic condition management, ensuring all preventive care measures are up-to-date. Plan - Continue current medication management for hypertension, hypothyroidism, and hyperlipidemia. - Recommend Levothyroxine for hypothyroi dism, Losartan for hypertension, and ensure adherence to multivitamin and Vitamin D supplementation. - Maintain surveillance for osteopenia w ith regular bone density checks. - Monitor impaired fasting glucose with ongoing A1c testing. - Administer tetanus vaccination today. - Facilitate contact with a community na vigator for assistance with inhaler costs. - Conduct Cologuard test for colon cance r screening. - Continue regular monitoring of asthmat ic bronchitis symptoms, particularly during colder months. - Consider advisement against potential urinary incontinence with lifestyle adjustments. - Continue supportive management for anx iety without pharmacological intervention. - Plan follow-up appointment in six [facility] hs HLD, HTN, Hypothyroid with PCP, sooner PRn An additional 30 minutes was spent addressing the problem(s) noted at todays visit. This includes time spent before the visit reviewing the chart, time spent during the visit, and time spent after the visit on documentation Patient was informed and verbally consented to the use of an ambient scribe for clinic note documentation during this visit. [facility] Medical History Arthritis Thyroid disease Hypertension Asthma Surgical History No pertinent past surgical history Social History Household Members: Spouse and Children Housing: House Are you a primary child care leader to a significant other at home: No Do you presently have visiting nurse or other home services: No Alcohol intake: current Alcohol intake frequency: holidays/special occasions only Alcohol type: beer Patient Tobacco Use Status: Former Tobacco user (45 years of not smoking) e-Cigarette/Vaping Use: Never Used service: No Current occupational status: retired Current occupational exposures/hazards: No Sexual orientation: Unable to collect Gender identity: Unable to collect Cognitive needs: No Hearing needs: No Vision needs: Yes (Patient wears reading glasses.) Questionnaire Medicare Wellness Checkup What [age] What gender do you identify with?: female During the past 4 weeks, how much have you been bothered by emotional problems such as feeling anxious, depressed, irritable, sad or downhearted, and blue?: not at all During the past 4 weeks, has your physical & emotional health limited your social activities with family, friends, neighbors, or groups?: not at all During the past 4 weeks, how much bodily pain have you generally had?: very mild pain (left arm s/p injection; R knee OA ) During the past 4 weeks, was someone available to help you if you needed & wanted help?: yes, as much as I wanted During the past 4 weeks, what was the hardest physical activity you could do for at least 2 minutes?: moderate Can you get to places out of walking distance without help? (For eg., can you travel alone on buses, taxis or drive your car?): Yes Can you go shopping for groceries or clothes without someone's help?: Yes Can you prepare your own meals?: Yes Can you do your housework without help?: Yes Because of any health problems, do you need the help of another person with your personal care needs such as eating, bathing, dressing or getting around the house?: No Can you handle your own money without help?: Yes During the past 4 weeks, how would you rate your health in general?: very good During the past 4 weeks how have things been going for you?: pretty well Are you having difficulties driving your car?: no Do you always fasten your seat belt when you are in a car?: yes, usually During past 4 weeks, have you been bothered by the following: never: Falling or dizzy when standing up, Sexual problems?, Trouble eating well?, Teeth or denture problems? (s/p tooth extraction a few months ago), Problems using the telephone? and Tiredness or fatigue? Have you fallen 2 or more times in the past year?: No Are you afraid of falling?: No Are you a smoker?: no During the past 4 weeks, how many drinks of wine, beer, or other alcoholic beverages did you have?: no alcohol at all Do you exercise for about 20 minutes 3 or more times a week?: yes, some of the time Have you been given information to help with the following?: no: Hazards in your house that might hurt you? and no: Keeping track of your medications? How often do you have trouble taking medicines the way you have been told to take them?: I always take medicine as prescribed How confident are you that you can control & manage most of your health problems?: very confident What is your race?: White Activity of Daily Living Bathing - sponge bath, tub bath or shower: receives no assistance (gets in/out by self, if usual bathing means Dressing - getting clothes from closets & drawers, including inner/outer garments & fasteners.: gets clothes & gets completely dressed without help Toileting - going to the 'toilet room' for urine/bowel elimination & cleaning self/arranging clothes: goes to toilet room, cleans self, arranges clothes without help Transfer: moves in & out of bed and chair without help (may use support object) Continence: controls urination/bowel movements completely by self Feeding: feeds self without help Total Score: 0 Information obtained from: patient Using telephone: independent Traveling: independent Shopping: independent Preparing meals: independent Housework: independent Taking medicine: independent Managing money: independent PHQ-9 Over the last 2 weeks, how often have you been bothered by any of the following problems? 98610 - PHQ-9 Billing: Patient declined-do not bill Source: Developed by Drs. Tk Israel, Piedad Bass, Wilfredo Valladares and colleagues, with an educational rene from [employer]. Physical Exam Vital Signs: Last Vital Signs Pulse 81 08/01/24 08:30 Resp 12 08/01/24 08:30 BP 117/66 08/01/24 08:30 Pulse Ox 98 08/01/24 08:30 Oxygen Delivery Method Room Air 08/01/24 08:30 BMI result Body Mass Index 35.9 Const Other: General: Well developed, well nourished, in no acute distress. Appears stated age. Head: Normocephalic, atraumatic. Eyes: Pupils are equal, round and reactive to light and accommodation. Conjunctivae are clear. Vision grossly normal. Ears: TMs clear AU, EACS WNL Nose: Patent, without discharge. Mouth: There are no ulcers or lesions noted. No inflammation, no post nasal drip, no plaques nor exudates. Neck: Supple, no adenopathy or thyromegaly. Lungs: Clear to auscultation bilaterally. No rales, rhonchi or wheeze noted. Good air flow in all jones. Heart: Regular rate and rhythm. No murmurs, click, rubs or gallops are noted. Abdomen: Bowel sounds present in all quadrants. The abdomen is soft, nontender, with no masses or organomegaly noted. No hernias are noted. Musculoskeletal: Joints are nontender, without swelling, redness, or effusions. Range of motion is observed to be normal. Pulses: Peripheral pulses are equal and palpable bilaterally. Extremities: No clubbing, cyanosis nor edema is noted. Neurologic: Gait and station normal. Cranial Nerves 2-12 intact. Motor strength grossly symmetrical and intact. No sensory loss. Balance normal. Skin: No rashes, ulcers, or lesions noted. Turgor is good. Skin color is good. Hair and nails are without abnormalities. Psych: Normal eye contact, affect and mood appropriate, and normal interactions. Patient is alert and appropriate to context. Office Procedures EKG Details: NOT DONE DONT BILL [id number], Complete (NOT DONE DO NOT BILL) Vision Screening Right Eye: 20/25 Left Eye: 20/25 Bilateral: 20/20 Color: Pass [id number] - Vision Screening Results AMB Hemoglobin A1c AMB Hemoglobin A1c 5.5 % Last Edit by Christopher Johnson MA on 08/01/24 08:47 Immunizations Boostrix Tdap 2.5 Lf unit-8 mcg-5 Lf/0.5 mL intramuscular syringe Performing Provider: NOE Davies Performing Location: [facility] Administered by: Elvie Workman RN on 08/01/24 09:13 Dose Route Admin Location Dispensed Lot Number Expiration Date ND Milk Runner 0.5 mL IM Right Deltoid 0.5 mL [id number] 08/08/26 85139-599-70 [place] VIS Given Date VIS Provided VIS Publication Date 08/01/24 Single Vaccine 21 Eligibility Eligibility Date Funding Source Not [facility] Eligible 08/01/24 Private Results Reviewed Results Reviewed: Laboratory Last Values Hgb A1c (Clinic) 5.5 % (4.0-6.0) 08/01/24 08:23 Assessment & Plan Assessment & Plan (1) Encounter for subsequent annual wellness visit (AWV) in Medicare patient: Code(s): Z00.00 - Encounter for general adult medical examination without abnormal findings (2) Elevated fasting glucose: Code(s): R73.01 - Impaired fasting glucose (3) Hypercholesterolemia: Code(s): E78.00 - Pure hypercholesterolemia, unspecified (4) Vitamin D deficiency: Code(s): E55.9 - Vitamin D deficiency, unspecified (5) Asthma: Code(s): J45.909 - Unspecified asthma, uncomplicated Qualifiers: Asthma complication type: uncomplicated Asthma persistence: intermitten t Asthma severity: mild Qualified Code(s): J45.20 - Mild intermittent asthma, uncomplicated (6) Hypertension: Code(s): I10 - Essential (primary) hypertension Qualifiers: Hypertension type: primary hypertension Qualified Code(s): I10 - Essential (primary) hypertension (7) Hypothyroidism (acquired): Code(s): E03.9 - Hypothyroidism, unspecified (8) Encounter for screening involving social determinants of health (SDoH): Code(s): Z13.9 - Encounter for screening, unspecified (9) Need for Tdap vaccination: Code(s): Z23 - Encounter for immunization (10) BMI 35.0-35.9,adult: Code(s): Z68.35 - Body mass index [BMI] 35.0-35.9, adult (11) Severe obesity (BMI 35.0-39.9) with comorbidity: Comment: with HLD and HTN Code(s): E66.01 - Morbid (severe) obesity due to excess calories (12) Urinary incontinence: Code(s): R32 - Unspecified urinary incontinence Qualifiers: Urinary Incontinence type: stress incontinence Qualified Code(s): N39.3 - Stress incontinence (female) (male) (13) Screening for colon cancer: Code(s): Z12.11 - Encounter for screening for malignant neoplasm of colon Plan . Orders: Orders Comprehensive Met. Panel Today E03.9 - Hypothyroidism, unspecified, E55.9 - Vitamin D deficiency, unspecified, E78.00 - Pure hypercholesterolemia, unspecified, I10 - Essential (primary) hypertension Lipid Panel Today E03.9 - Hypothyroidism, unspecified, E55.9 - Vitamin D deficiency, unspecified, E78.00 - Pure hypercholesterolemia, unspecified, I10 - Essential (primary) hypertension Microalbumin, Random (w Creat) Today E03.9 - Hypothyroidism, unspecified, E55.9 - Vitamin D deficiency, unspecified, E78.00 - Pure hypercholesterolemia, unspecified, I10 - Essential (primary) hypertension TSH reflex Free T4 Today E03.9 - Hypothyroidism, unspecified, E55.9 - Vitamin D deficiency, unspecified, E78.00 - Pure hypercholesterolemia, unspecified, I10 - Essential (primary) hypertension AMB Hemoglobin A1c Today Z13.9 - Encounter for screening, unspecified AMB EKG-In Office Today Z13.6 - Encounter for screening for cardiovascular disorders Vitamin B12 and Folate Today E03.9 - Hypothyroidism, unspecified, E55.9 - Vitamin D deficiency, unspecified, E78.00 - Pure hypercholesterolemia, unspecified, I10 - Essential (primary) hypertension Vitamin D 25-OH Total Today E03.9 - Hypothyroidism, unspecified, E55.9 - Vitamin D deficiency, unspecified, E78.00 - Pure hypercholesterolemia, unspecif ied, I10 - Essential (primary) hypertension TDaP Immunization Today Z23 - Encounter for immunization Referrals Nurse Navigator Referral J45.210 - Unspecified asthma, uncomplicated, Z13.9 - Encounter for screening, unspecified Cologuard Test Z12.11 - Encounter for screening for malignant neoplasm of colon, Z12.12 - Encounter for screening for malignant neoplasm of rectum Patient Instructions: Patient Instructions - Continue taking prescribed medications: Levothyroxine for thyroid and Losartan for blood pressure. - Adhere to Vitamin D and multivitamin supplementation. - Follow up with the community navigator for potential cost reduction strategies for the inhaler. - Complete Cologuard test as directed for colon cancer screening. - Attend all scheduled medical follow-ups and screenings. - Report any new or worsening symptoms of asthmatic bronchitis, especially during cold weather. - Maintain current lifestyle practices including regular exercise and healthy diet. - Exercise fall precautions at home and remain vigilant for signs of urinary incontinence. - Return if experiencing changes in health status or if assistance is necessary. - Schedule a follow-up appointment in six months for further evaluation and wellness check-up. Health screenings for women You should visit your health care provider from time to time, even if you are healthy. The purpose of these visits is to: Screen for medical issues Assess your risk for future medical problems Encourage a healthy lifestyle Update vaccinations and other preventive care services Help you get to know your provider in case of an illness Information Even if you feel fine, you should still see your provider for regular checkups. These visits can help you avoid problems in the future. For example, the only way to find out if you have high blood pressure is to have it checked regularly. High blood sugar and high cholesterol levels also may not have any symptoms in the early stages. A simple blood test can check for these conditions. There are specific times when you should see your provider or receive specific health screenings. The [place] Preventive Services Task Force publishes a list of recommended screenings. Below are screening guidelines for women ages 18 to 39. BLOOD PRESSURE SCREENING Your blood pressure should be checked at least once every 3 to 5 years if: Your blood pressure is in the normal range (top number less than 120 mm Hg and bottom number less than 80 mm Hg) You don't have risk factors for high blood pressure Ask your provider if you need your blood pressure checked more often if: The top number is 120 to 129 mm Hg or the bottom number is 70 to 79 mm Hg You have diabetes, heart disease, kidney problems, are overweight, or have certain other health conditions You have a first-degree relative with high blood pressure You are Black You had high blood pressure during a If the top number is 130 mm Hg or greater or the bottom number is 80 mm Hg or greater, this is considered stage 1 hypertension. Schedule an appointment with your provider to learn how you can reduce your blood pressure. Watch for blood pressure screenings in your area. Ask your provider if you can stop in to have your blood pressure checked. BREAST CANCER SCREENING Experts do not agree about the benefits of breast self-exams in finding breast cancer or saving lives. Talk to your provider about what is best for you. A screening mammogram is not recommended for most women under age 40. Your provider may discuss and recommend mammograms, MRI scans, or ultrasounds if you have an increased risk for breast cancer, such as: A mother or sister who had breast cancer at a young age (most often starting screening earlier than the age the close relative was diagnosed) You carry a high-risk genetic marker CERVICAL CANCER SCREENING Cervical cancer screening should start at age 21 years unless your provider advises otherwise. After the first test: Women ages 21 through 29 should have a Pap test every 3 years. Exoprts do not agree on whether HPV testing is recommended for this age group. Women ages 30 through 65 should be screened with either a Pap test every 3 years or the HPV test every 5 years or both tests every 5 years (called cotesting ). Women who have been treated for precancer (cervical dysplasia) should continue to have Pap tests for 20 years after treatment or until age 65, whichever is longer. If you have had your uterus and cervix removed (total hysterectomy), and you have not been diagnosed with cervical cancer or precancer (high grade cervical neoplasia), you do not need cervical cancer screening. CHOLESTEROL SCREENING Cholesterol screening should begin at: Age 45 for women with no known risk factors for coronary heart disease Age 20 for women with known risk factors for coronary heart disease Repeat cholesterol screening should take place: Every 5 years for women with normal cholesterol levels More often if changes occur in lifestyle (including weight gain and diet) More often if you have diabetes, heart disease, kidney problems, or certain other conditions DIABETES SCREENING You should be screened for diabetes starting at age 35 and then repeated every 3 years if you have no risk factors for diabetes. Screening may need to start earlier and be repeated more often if you have other risk factors for diabetes, such as: You have a first degree relative with diabetes. You are overweight or have obesity. You have high blood pressure, prediabetes, or a history of heart disease. Screening for diabetes should be done if you are planning to become and you are overweight and have other risk factors such as high blood pressure. DENTAL EXAM Go to the dentist once or twice every year for an exam and cleaning. Your dentist will evaluate if you need more frequent visits. EYE EXAM Have an eye exam every 5 to 10 years before age 40. If you have vision problems, have an eye exam every 2 years or more often if recommended by your provider. You should have an eye exam that includes an examination of your retina (back of your eye) at least every year if you have diabetes. IMMUNIZATIONS Commonly needed vaccines include: Flu shot: get one every year. COVID-19 vaccine: ask your provider what is best for you. Tetanus-diphtheria and acellular pertussis (Tdap) vaccine: have one at or after age 19 as one of your tetanus-diphtheria vaccines if you did not receive it as an adolescent. Tetanus-diphtheria: have a booster (or Tdap) every 10 years. Varicella vaccine: receive 2 doses if you never had chickenpox or the varicella vaccine. Hepatitis B vaccine: receive 2, 3, or 4 doses, depending on your exact circumstances. Measles, mumps, and rubella (MMR) vaccine: receive 1 to 2 doses if you are not already immune to MMR. Your provider can tell you if you are immune. Ask your provider about the human papillomavirus (HPV) vaccine if: You have not received the HPV vaccine in the past You have not completed the full vaccine series (you should catch up on this shot) Ask your provider if you should receive other immunizations if you have certain health problems that increase your risk for some diseases such as pneumonia. INFECTIOUS DISEASE SCREENING Women who are sexually active should be screened for chlamydia and gonorrhea up until age 25. Women 25 years and older should be screened for chlamydia and gonorrhea if at high risk. Screening for hepatitis C: All adults ages 18 to 79 should get a one-time test for hepatitis C. people should be screened at every . Screening for human immunodeficiency virus (HIV): All people ages 15 to 65 should get a one-time test for HIV. Depending on your lifestyle and medical history, you may also need to be screened for infections such as syphilis and HIV, as well as other infections. PHYSICAL EXAM All adults should visit their provider from time to time, even if they are healthy. The purpose of these visits is to: Screen for disease Assess your risk of future medical problems Encourage a healthy lifestyle Update your vaccinations and other preventive care services Maintain a relationship with a provider in case of an illness Your height, weight, and BMI should be checked at every exam. During your exam, your provider may ask you about: Depression and anxiety Diet and exercise Alcohol and tobacco use Safety issues, such as using seat belts, smoke detectors, and intimate partner violence Your medicines and risk for interactions SKIN SELF-EXAM Your provider may check your skin for signs of skin cancer, especially if you're at high risk, such as if you: Have had skin cancer before Have close relatives with skin cancer Have a weakened immune system OTHER SCREENING Talk with your provider about colon cancer screening if you have a strong family history of colon cancer or polyps, or if you have had inflammatory bowel disease or polyps yourself. Routine bone density screening of women under 40 is not recommended. Quality Reporting (2019) Adult ([facility] 138//69) Smoking risk assessment performed?: Yes Patient Tobacco Use Status: Former Tobacco user (45 years of not smoking) Depression screening performed: Yes Systolic BP not done?: No Diastolic BP not done?: No BMI screening not done: No Sexual Activity Screening ([facility] 153) Sexually active?: No Immunizations ([facility] 147, 117) Annual Influenza Vaccine: Yes Measles Antibody Test: No Mumps Antibody Test: No Rubella Antibody Test: No Varicella Antibody Test: No Anti Hepatitis A IgG Antigen test: No Anti Hepatitis B Virus Surface Ab test: No Fall Risk Screening ([facility] 139) Last assessed Fall Risk: 08/01/24 Fall risk assessment: No Falls in past year Dementia Assessment ([facility] 149) Cognitive assessment recorded: Yes Assessment of cognition with standardized tool: Yes (0/28 6 CIT ) Ophthalmol:Cataracts Visual Acuity (133) Visual acuity exam performed: Yes (SEE RESULTS) Coding Level of Care Code Medicare Subsequent (G0439) Est Pt Level 4 (61462) Diagnoses Encounter for subsequent annual wellness visit (AWV) in Medicare patient Z00.00 Elevated fasting glucose R73.01 Hypercholesterolemia E78.00 Vitamin D deficiency E55.9 Mild intermittent asthma without complication J45.20 Asthma complication type: uncomplicated Asthma persistence: intermittent Asthma severity: mild Primary hypertension I10 Hypertension type: primary hypertension Hypothyroidism (acquired) E03.9 Encounter for screening involving social determinants of health (SDoH) Z13.9 Need for Tdap vaccination Z23 BMI 35.0-35.9,adult Z68.35 Severe obesity (BMI 35.0-39.9) with comorbidity E66.01 Stress incontinence of urine N39.3 Urinary Incontinence type: stress incontinence Screening for colon cancer Z12.11 CPT Codes Advance Care Planning - Time spent: 1-15 minutes, not on file ([id number]) EKG - CPT: 62367-Euigtonobmdyyhtav, Complete ([id number]) Vision Screening - Vision Screenin - Vision Screening ([id number]) Advance Care Planning Advance Care Planning discussion: Exists, not on file Date of discussion: 08/01/24 Forms completed: Health Care Proxy, MOLST and Living will Time spent: 1-15 minutes, not on file Actual minutes spent: 10
--- NOTE | 2024-08-01 08:24 | AM.OFFVISMDC ---
Intake Intake Visit Reasons: CPE with f/u labs and health maint. - see comments Intake Note: Awv and follow up on labs Allergies codeine Allergy (Mild, Verified 11/16/23 09:23) Nightmare Sulfa (Sulfonamide Antibiotics) [SULFA(SULFONAMIDE ANTIBIOTICS)] Allergy (Unknown, Verified 11/16/23 09:22) RASH PFSH Medical History Arthritis Thyroid disease Hypertension Asthma Surgical History No pertinent past surgical history Social History Household Members: Spouse and Children Both parents involved: No Caregiver staying overnight: No Housing: House Are you a primary healthcare administrative assistant to a significant other at home: No Do you presently have visiting nurse or other home services: No 75 years or older and lives alone: No Alcohol intake: current Alcohol intake frequency: holidays/special occasions only Alcohol type: beer Patient Tobacco Use Status: Former Tobacco user (45 years of not smoking) e-Cigarette/Vaping Use: Never Used service: No Current occupational status: retired Current occupational exposures/hazards: No Sexual orientation: Unable to collect Gender identity: Unable to collect Cognitive needs: No Hearing needs: No Vision needs: Yes (Patient wears reading glasses.) Questionnaire PHQ-9 Over the last 2 weeks, how often have you been bothered by any of the following problems? 64736 - PHQ-9 Billing: Patient declined-do not bill Source: Developed by Drs. Tk Israel, Piedad Bass, Wilfredo Valladares and colleagues, with an educational rene from [employer]. Office Procedures EKG Details: NOT DONE DONT BILL 14621-Egcmysrszqawuuhoq, Complete (NOT DONE DO NOT BILL) Vision Screening 89128 - Vision Screening Assessment & Plan Assessment & Plan Orders: Orders AMB Hemoglobin A1c Today Z13.9 - Encounter for screening, unspecified AMB EKG-In Office Today Z13.6 - Encounter for screening for cardiovascular disorders Coding CPT Codes EKG - CPT: 47296-[id number], Complete ([id number]) Vision Screening - Vision Screenin - Vision Screening ([id number])
[2024-08-01 08:30] VITALS: BP 117/66; PULSE 81; RESP 12; O2SAT 98; BMI 35.9
== END 2024-08-01 09:12 | disposition home or self-care (01) ==
PROVIDERS: PCP Family Medicine; Visit Provider Nurse Practitioner Family
DX: Z00.00 Encounter for general adult medical examination without abnormal findings (principal); R73.01 Impaired fasting glucose; Z68.35 Body mass index [BMI] 35.0-35.9, adult; E66.01 Morbid (severe) obesity due to excess calories; E78.00 Pure hypercholesterolemia, unspecified; E55.9 Vitamin D deficiency, unspecified; J45.20 Mild intermittent asthma, uncomplicated; I10 Essential (primary) hypertension; E03.9 Hypothyroidism, unspecified; Z23 Encounter for immunization; N39.3 Stress incontinence (female) (male)

== ENCOUNTER 2024-08-01 09:17 | Outpatient (REF) | payer MEDICARE, SELFPAY ==
[2024-08-01 11:37] LABS: Alanine Aminotransferase 30 U/L (0-31); Albumin Level 4.5 g/dL (3.5-5.0); Alkaline Phosphatase 63 U/L (39-117); Anion Gap 10 (12-20); Aspartate Amino Transferase 24 U/L (5-31); Bilirubin Total 0.4 mg/dL (0.0-1.0); Blood Urea Nitrogen 13 mg/dL (9-16); Calcium 9.6 mg/dL (8.4-10.2); Carbon Dioxide 29 mmol/L (22-29); Chloride 107 mmol/L (96-108); Cholesterol 194 mg/dL (<200); Estimated Glomerular Filt Rate > 60; Glucose Random 107 mg/dL (60-115); HDL Cholesterol 52 mg/dL (>40); LDL Cholesterol Calculated 117 mg/dL (<100); Potassium 4.1 mmol/L (3.3-5.1); Sodium 142 mmol/L (135-145); Total Protein 7.5 g/dL (6.5-8.0); Triglycerides 129 mg/dL (<150)
[2024-08-01 11:54] LABS: Vitamin D 25-OH Total > 154.2 ng/mL (>30)
[2024-08-01 12:00] LABS: Creatinine Urine 44.62 mg/dL; Microalbumin Urine < 5.0 mg/L
[2024-08-01 12:06] LABS: Folate 16.4 ng/mL (> or = 4.0); Vitamin B12 453 pg/mL (200-900)
== END 2024-08-01 09:18 | disposition home or self-care (01) ==
LOC: HO.WFDLDS 09:17
PROVIDERS: Visit Provider Nurse Practitioner Family
DX: Z00.00 Encounter for general adult medical examination without abnormal findings (principal); Z23 Encounter for immunization; R73.01 Impaired fasting glucose; E78.00 Pure hypercholesterolemia, unspecified; E55.9 Vitamin D deficiency, unspecified; J45.20 Mild intermittent asthma, uncomplicated; I10 Essential (primary) hypertension; E03.9 Hypothyroidism, unspecified; E66.01 Morbid (severe) obesity due to excess calories; Z68.35 Body mass index [BMI] 35.0-35.9, adult; N93.9 Abnormal uterine and vaginal bleeding, unspecified; Z71.3 Dietary counseling and surveillance
CPT/HCPCS: 36415; 80053; 80061; 82306; 82570; 82607; 82746; 83036; 84443; 90471; 90715; 93005; 99212

== ENCOUNTER 2024-12-12 12:55 | Outpatient (REF) | payer MEDICARE, SELFPAY | END 2024-12-12 12:56 | disposition home or self-care (01) | LOC: HO.MAMMO 12:55 | PROVIDERS: PCP Family Medicine; Visit Provider Family Medicine | DX: Z12.31 Encounter for screening mammogram for malignant neoplasm of breast (principal) | CPT/HCPCS: 77063; 77067 ==

== ENCOUNTER → 2024-12-12 13:00 | Outpatient (BNV) | payer MEDICARE, SELFPAY | PROVIDERS: PCP Family Medicine; Visit Provider Internal Medicine | DX: Z12.31 Encounter for screening mammogram for malignant neoplasm of breast (principal) | CPT/HCPCS: 77063; 77067 ==

== ENCOUNTER 2025-01-29 09:29 | Outpatient (AMB) | payer MEDICARE, SELFPAY ==
--- NOTE | 2025-01-29 09:43 | A.OFFPC_ITS ---
Vital Signs 01/29/25 09:45 Height 5 ft Weight 186 lb BMI 36.3 BP 138/80 Blood Pressure Location Lt brachial Position Sitting Respiration 16 Pulse 66 Pulse Source Pulse Oximeter Temp 98.3 F Temp Source Oral Pulse Oximetry (%) 97 Oxygen Delivery Method Room Air Intake Visit Reasons: [address] pelaez routine htn/hld/hypothyroid fu Intake Note: patient is scheduled for lab review Nozzleman Required: No Allergies codeine Allergy (Mild, Verified 01/29/25 09:44) Nightmare Sulfa (Sulfonamide Antibiotics) (SULFA(SULFONAMIDE ANTIBIOTICS)) Allergy (Unknown, Verified 01/29/25 09:44) RASH Medication List - Last Reconciled 01/29/25 by Janes Carroll MD albuterol sulfate 90 mcg/actuation (ProAir HFA) 2 puffs inhalation Q4-6H PRN 30 days calcium carbonate (Antacid (calcium carbonate)) 200 mg PO BID cetirizine (Zyrtec) 10 mg PO DAILY PRN Combivent Respimat 20-100 mcg/actuation (ipratropium-albuterol) 1 puff PO Q6H NS levothyroxine 88 mcg PO DAILY losartan 50 mg PO DAILY 90 days multivitamin 1 tab PO DAILY Tobacco use date assessed: 08/25/23 Dental Screening Dental Screen Date: 08/25/[address] pelaez routine htn/hld/hypothyroid fu HPI Details 74 y/o female presents to f/u hypertensi on, HLD, hypothyroidism. Most recent labs drawn 08/01/24. Triglycerides 129. TC 194. LDL 117. HDL 52. Blood pressure today 138/80, 66p. She is on losartan 50mg daily. [facility], [facility] Medical History Arthritis Thyroid disease Hypertension Asthma Surgical History No pertinent past surgical history Social History Household Members: Spouse and Children Both parents involved: No Caregiver staying overnight: No Housing: House Are you a primary critical care physician to a significant other at home: No Do you presently have visiting nurse or other home services: No 75 years or older and lives alone: No Alcohol intake: current Alcohol intake frequency: holidays/special occasions only Alcohol type: beer Patient Tobacco Use Status: Former Tobacco user (45 years of not smoking) e-Cigarette/Vaping Use: Never Used service: No Current occupational status: retired Current occupational exposures/hazards: No Sexual orientation: Unable to collect Gender identity: Unable to collect Cognitive needs: No Hearing needs: No Vision needs: Yes (Patient wears reading glasses.) Questionnaire PHQ-9 Over the last 2 weeks, how often have you been bothered by any of the following problems? 1. Little interest or pleasure in doing things: not at all 2. Feeling down, depressed, or hopeless: not at all 3. Trouble falling or staying asleep, or sleeping too much: not at all 4. Feeling tired or having little energy: not at all 5. Poor appetite or overeating: not at all 6. Feeling bad about yourself - or that you are a failure or have let yourself or your family down: not at all 7. Trouble concentrating on things, such as reading the newspaper or watching television: not at all 8. Moving or speaking so slowly that other people could have noticed. Or the opposite - being so fidgety or restless that you have been moving around a lot more than usual: not at all 9. Thoughts that you would be better off or of hurting yourself in some way: not at all Total score: 0 Source: Developed by Drs. Tk Israel, Wilfredo Maloney and colleagues, with an educational rene from [email or web address]. Thrive Questionnaire Date Thrive assessed: 01/29/25 I am a: Patient What is your living situation today?: I have a steady place to live THRIVE Score: 0 TOPHER-7 AMB Questionnaire TOPHER-7 Date TOPHER - 7 assessed: 07/25/23 Source: Developed by Drs. Tk Israel, Piedad Bass, Wilfredo Valladares and colleagues, with an educational rene from [email or web address]. Review of Systems Const Denies chills, Denies fatigue, Denies fever(s), Denies headache(s) and Denies weakness ENT Denies dizziness and Denies headache(s) Card Denies dyspnea Resp Denies cough, Denies dyspnea, Denies wheezing and Denies other (shortness of breath) Musc Denies numbness and Denies tingling Neuro Denies dizziness, Denies headache(s), Denies numbness, Denies tingling and Denies weakness Psych Denies anxiety and Denies depression Endo Denies fatigue Aller/Immun Denies wheezing Physical exam (Primary Care) Vital Signs: Last Vital Signs Temp 98.3 F 01/29/25 09:45 Pulse 66 01/29/25 09:45 Resp 16 01/29/25 09:45 BP 138/80 01/29/25 09:45 Pulse Ox 97 01/29/25 09:45 Oxygen Delivery Method Room Air 01/29/25 09:45 BMI result Body Mass Index 36.3 Tobacco/Smoking Status: Tobacco use Status Tobacco use date assessed 08/25/23 01/29/25 09:48 Patient Tobacco Use Status Former Tobacco user (45 01/29/25 09:48 years of not smoking) e-Cigarette/Vaping Use Never Used 01/29/25 09:48 PHQ-9: PHQ-9 Score PHQ-9: Total score 0 01/29/25 10:17 Thrive Assessment: Date of Thrive Assessment Date Thrive assessed 01/29/25 01/29/25 09:48 Const General: well developed; No acute distress Nutritional Appearance: well nourished Orientation/consciousness: patient oriented x3 HENMT Head: Yes normocephalic and Yes atraumatic Eyes General: appearance normal, both eyes and all related structures Pupils: Equal, round and reactive pupils present EOM: EOMs intact bilaterally Resp Effort & Inspection: normal respiratory effort Neuro General: patient oriented x3 and gait normal Cranial nerves: Yes Equal, round and reactive pupils present Psych Affect: normal affect Coding Level of Care Code Est Pt Level 3 (94372) Diagnoses Primary hypertension I10 Hypertension type: primary hypertension Hypercholesterolemia E78.00 Hypothyroidism (acquired) E03.9 Vitamin D deficiency E55.9 Assessment & Plan Assessment & Plan (1) Hypertension: Code(s): I10 - Essential (primary) hypertension Category: Medical Qualifiers: Hypertension type: primary hypertension Qualified Code(s): I10 - Essential (primary) hypertension Plan: Blood pressure is fairly well controlled. Goal is less than 140/90 Continue current medication Encouraged weight loss and salt/sodium avoidance Will continue to monitor (2) Hypercholesterolemia: Code(s): E78.00 - Pure hypercholesterolemia, unspecified Category: Medical Plan: Have Check lipids (3) Hypothyroidism (acquired): Code(s): E03.9 - Hypothyroidism, unspecified Category: Medical Plan: Taking levothyroxine 88 mcg daily Will check thyroid hormone levels (4) Vitamin D deficiency: Code(s): E55.9 - Vitamin D deficiency, unspecified Category: Medical Plan: Patient had had very high vitamin-D levels in July. She discontinued her supplement Will recheck vitamin-D level Orders: Orders Lipid Panel Today E78.00 - Pure hypercholesterolemia, unspecified, Z00.00 - Encounter for general adult medical examination without abnormal findings Vitamin D 25-OH Total Today E55.9 - Vitamin D deficiency, unspecified Free T4 (Free Thyroxine) Today E03.9 - Hypothyroidism, unspecified Thyroid Stimulating Hormone Today E03.9 - Hypothyroidism, unspecified Comprehensive [place]. Panel Fast Today E78.00 - Pure hypercholesterolemia, unspecified, Z00.00 - Encounter for general adult medical examination without abnormal findings Triiodothyronine T3 Total Today E03.9 - Hypothyroidism, unspecified UA CC w/rflx Micro + Cult Today Z00.00 - Encounter for general adult medical examination without abnormal findings
[2025-01-29 09:45] VITALS: BP 138/80; PULSE 66; RESP 16; TEMP 36.8; O2SAT 97; BMI 36.3
== END 2025-01-29 10:28 | disposition home or self-care (01) ==
LOC: HO.HMCFM 09:29
PROVIDERS: PCP Family Medicine; Visit Provider Family Medicine
DX: I10 Essential (primary) hypertension (principal); E78.00 Pure hypercholesterolemia, unspecified; E03.9 Hypothyroidism, unspecified; E55.9 Vitamin D deficiency, unspecified

== ENCOUNTER → 2025-01-29 09:29 | Outpatient (BNVA) | payer MEDICARE, SELFPAY | PROVIDERS: PCP Family Medicine; Visit Provider Family Medicine | DX: I10 Essential (primary) hypertension (principal); E78.00 Pure hypercholesterolemia, unspecified; E03.9 Hypothyroidism, unspecified; E55.9 Vitamin D deficiency, unspecified | CPT/HCPCS: 99212 ==

== ENCOUNTER 2025-02-01 09:28 | Outpatient (REF) | payer MEDICARE, SELFPAY ==
--- OUTSIDE RECORDS SUMMARY | 2025-02-01 09:34 | XMS_ITS | Clinical Summary ---
Author Organization [facility] Address [address] [address] Phone Care Team Providers Care Assistant Professor Surgical Technology Name Role Phone Janes Carroll MD Primary Care Provider Allergies Active Allergy Reactions Criticality Noted Date Comments Cat Hair Standardized Allerg enic Extract 12/16/2021 Codeine 05/20/2022 Severe nightmares Sulfa (Sulfonamide Antibiotics) 07/2021 Medications levothyroxine (SYNTHROID, LEVOTHROID) 88 MCG tablet Take 88 mcg by mouth every morning. 11/20/2021 Active COMBIVENT RESPIMAT 20-100 mcg/actuation Mist INHALE 1 PUFF FOUR TIMES DAILY UP TO 6 TIMES A DAY 12/11/2021 Active cetirizine (ZYRTEC) 10 MG tablet Take 10 mg by mouth daily. Active predniSONE (DELTASONE) 20 MG tablet 3 tablets X 3 days, 2 tablets X 3 days , 1 tablet X 3 days 18 tablet 12/16/2021 Active calcium carbonate-vitam in D3 (CALCIUM 500 + D) 500 mg-400 units per tablet Take 1 tablet by mouth daily. Active multivitamin with minerals (ONE-A-DAY MAXIMUM FORMULA ORAL) Take by mouth. Active losartan (COZAAR) 50 MG tablet Take 50 mg by mouth daily. Active albuterol 90 mcg/actuation inhaler Inhale 2 puffs into the lungs every 6 (six) hours as needed for wheezing. 18 g 11/07/2023 Active inhaler spacing device (AEROCHAMBER,BR EATHERITE) Spcr Inhale 1 each into the lungs every 4 (four) hours as needed. 1 each 11/07/2023 Active Active Problems No known active problems Immunizations Immunization Administration Dates Next Due Influenza High-Dose Quadrivalent Preservative Fr ee IM 04/22/2021 Influenza High-Dose Trivalent Preservative Free IM 06/04/2019 Influenza Quadrivalent Adjuvanted Preservative F ree IM 03/20/2020 Pneumococcal conjugate PCV13 07/05/2020 Social History Tobacco Use Types Packs/Day Years Used Date Smoking Tobacco: Former Smokeless Tobacco: Never Education Answer Date Recorded Are you interested in more education? Not on danny e 11/13/2022 Are you concerned about learning? Not on file 11/13/2022 No 11/13/2022 No 11/13/2022 Digital Access Answer Date Recorded No 12/12/2022 No 12/12/2022 Reliable internet access at home? Not on file 12/12/2022 Device with a working camera? Not on file Comments Unknown Sex and Gender Information Value Date Recorded Sex Assigned at Not on file Legal Sex Female 8:04 AM EDT Gender Identity Not on file Sexual Orientation Not on file Last Filed Vital Signs Vital Sign Reading Time Taken Comments Blood Pressure 139/90 11/07/2023 12:54 PM EDT Pulse 80 11/07/2023 12:54 PM EDT Temperature 36.8 C (98.2 F) 11/07/2023 12:54 PM EDT Respiratory Rate 20 11/07/2023 12:54 PM EDT Oxygen Saturation 97% 11/07/2023 12:54 PM EDT Inhaled Oxygen Concentration - - Weight 81.6 kg (180 lb) 11/07/2023 12:54 PM EDT per pt Height 151.1 cm (4' 11.49 ) 05/20/2022 12:04 PM EDT Body Mass Index 35.76 05/20/2022 12:04 PM EDT Plan of Treatment Health Maintenance Due Date Last Done Comments Adult Td,Tdap Booster 1950 CREATININE LEVEL 1950 LIPID PANEL 1950 POTASSIUM LEVEL 1950 TSH LEVEL 1950 DEPRESSION SCREENING 1962 SMOKING Hx and SMOKELESS TOBACCO SCREENING 10/26/1963 HEPATITIS C SCREENING 1968 MAMMOGRAM 1990 COLOGUARD 10/26/1995 COLONOSCOPY 10/26/1995 COLORECTAL CANCER SCREENING 10/26/1995 FIT TEST 10/26/1995 FOBT 10/26/1995 SIGMOIDOSCOPY 10/26/1995 VIRTUAL COLONOSCOPY 10/26/1995 ZOSTER VACCINES (1 of 2) 2000 OSTEOPOROSIS SCREENING INITI AL (ONE-TIME) 10/26/2015 COVID-19 VACCINE (2023-2 5 season) 2024 04/21/2023, 06/20/2021, 09/25/2020 PNEUMOCOCCAL VACCINES (50+ years) Completed 04/21/2023, 07/05/2020 RSV VACCINE Completed 04/21/2023 HEPATITIS A VACCINES Aged Out No long er eligible based on patient's age to complete this topic HIB VACCINES Aged Out No longer eligi ble based on patient's age to complete this topic MENINGOCOCCAL VACCINES (ACWY) Aged Out No longer eligible based on patient's age to complete this topic MENINGOCOCCAL VACCINES (B) Aged Out N o longer eligible based on patient's age to complete this topic Medical Devices Not on file Insurance [facility] MEDICARE REPLACEMENT [facility] MEDICARE REPLACEMENT [facility] MEDICARE REPLACEMENT [facility] MEDICARE REPLACEMENT [place] [address] MEDICARE REPLACEMENT [facility] MEDICARE REPLACEMENT [place] [address] MEDICARE REPLACEMENT [facility] MEDICARE REPLACEMENT [facility] MEDICARE REPLACEMENT [place] [id number] Care Teams Assistant Professor Surgical Technology Relationship Specialty Start Date End Date Janes Carroll MD [address] [place] [address] PCP - General Family Medicine 11/07/23 Additional Source Comments The information contained in this document represents components of the legal health record. It is not the complete legal health record.[facility]
[2025-02-01 11:49] LABS: Appearance Urine Clear; Glucose Urine UA Negative (Negative); PH 7.0 (5.0-9.0); Specific Gravity - Urine 1.015 (1.005-1.025)
[2025-02-01 12:02] LABS: Alanine Aminotransferase 17 U/L (0-31); Albumin Level 4.3 g/dL (3.5-5.0); Alkaline Phosphatase 56 U/L (39-117); Anion Gap 12 (12-20); Aspartate Amino Transferase 20 U/L (5-31); Blood Urea Nitrogen 12 mg/dL (9-16); Calcium 9.0 mg/dL (8.4-10.2); Carbon Dioxide 27 mmol/L (22-29); Chloride 108 mmol/L (96-108); Cholesterol 175 mg/dL (<200); Estimated Glomerular Filt Rate > 60; HDL Cholesterol 46 mg/dL (>40); Potassium 4.1 mmol/L (3.3-5.1); Sodium 143 mmol/L (135-145); Total Protein 6.7 g/dL (6.5-8.0); Triglycerides 61 mg/dL (<150)
[2025-02-01 12:22] LABS: Free T4 (Free Thyroxine) 1.04 ng/dL (0.71-1.85); Thyroid Stimulating Hormone 0.57 uIU/mL (0.32-4.0)
== END 2025-02-01 09:29 | disposition home or self-care (01) ==
LOC: HO.WFDLDS 09:28
PROVIDERS: Visit Provider Family Medicine
DX: Z00.00 Encounter for general adult medical examination without abnormal findings (principal); E78.00 Pure hypercholesterolemia, unspecified; E03.9 Hypothyroidism, unspecified; E55.9 Vitamin D deficiency, unspecified
CPT/HCPCS: 36415; 80053; 80061; 81003; 82306; 84439; 84443; 84480

== ENCOUNTER 2025-06-11 13:38 | Outpatient (AMB) | payer MEDICARE, SELFPAY ==
--- NOTE | 2025-06-11 13:41 | A.OFFPC_ITS ---
Vital Signs 06/11/25 13:44 Height 5 ft Weight 180 lb 6 oz BMI 35.2 BP 128/72 Blood Pressure Location Rt brachial Position Sitting Respiration 12 Pulse 79 Pulse Source Pulse Oximeter Temp 97.5 F Temp Source Oral Pulse Oximetry (%) 98 Oxygen Delivery Method Room Air Intake Visit Reasons: f/u reschedule Intake Note: Routine follow up Patient Service Specialist Required: No Allergies codeine Allergy (Mild, Verified 06/11/25 13:41) Nightmare Sulfa (Sulfonamide Antibiotics) (SULFA(SULFONAMIDE ANTIBIOTICS)) Allergy (Unknown, Verified 06/11/25 13:41) RASH Medication List - Last Reconciled 06/11/25 by Janes Carroll MD albuterol sulfate 90 mcg/actuation (ProAir HFA) 2 puffs inhalation Q4-6H PRN 30 days calcium carbonate (Antacid (calcium carbonate)) 200 mg PO BID cetirizine (Zyrtec) 10 mg PO DAILY PRN Combivent Respimat 20-100 mcg/actuation (ipratropium-albuterol) 1 puff PO Q6H NS levothyroxine 88 mcg PO DAILY losartan 50 mg PO DAILY 90 days multivitamin 1 tab PO DAILY Tobacco use date assessed: 06/11/25 Fall risk assessment: No Falls in past year Last assessed Fall Risk: 06/11/25 Dental Screening Dental Screen Date: 06/11/25 Did you have a dental visit in the last 12 months?: Yes Did you have a dental problem in the last 6 months where you did not have access to dental care?: No Was dental information given to patient?: Patient has dentist HPI f/u reschedule HPI Details 74 y/o female presents to f/u HTN, hypot hyroidism, HLD, low vitamin D level. Blood pressure is controlled. Goal is less than 140/90 Continue current medication Patient is taking levothyroxine 88 mcg daily and thyroid hormone levels are all within normal range Continue thyroxine 88 mcg daily LDL cholesterol at prior treatment. When 117 at last measurement and again 117 today. Patient lost about 6 lb since last visit Continue working on weight loss Encouraged diet low in saturated fats and cholesterol Will continue monitor Vitamin-D level is 89 PFSH Medical History Arthritis Thyroid disease Hypertension Asthma Surgical History No pertinent past surgical history Social History Household Members: Spouse and Children Both parents involved: No Caregiver staying overnight: No Housing: House Are you a primary special needs caregiver to a significant other at home: No Do you presently have visiting nurse or other home services: No 75 years or older and lives alone: No Alcohol intake: current Alcohol intake frequency: holidays/special occasions only Alcohol type: beer Patient Tobacco Use Status: Former Tobacco user (45 years of not smoking) e-Cigarette/Vaping Use: Never Used service: No Current occupational status: retired Current occupational exposures/hazards: No Sexual orientation: Unable to collect Gender identity: Unable to collect Cognitive needs: No Hearing needs: No Vision needs: Yes (Patient wears reading glasses.) Questionnaire PHQ-9 Over the last 2 weeks, how often have you been bothered by any of the following problems? 1. Little interest or pleasure in doing things: not at all 2. Feeling down, depressed, or hopeless: not at all 3. Trouble falling or staying asleep, or sleeping too much: not at all 4. Feeling tired or having little energy: not at all 5. Poor appetite or overeating: not at all 6. Feeling bad about yourself - or that you are a failure or have let yourself or your family down: not at all 7. Trouble concentrating on things, such as reading the newspaper or watching television: not at all 8. Moving or speaking so slowly that other people could have noticed. Or the opposite - being so fidgety or restless that you have been moving around a lot more than usual: not at all 9. Thoughts that you would be better off or of hurting yourself in some way: not at all Total score: 0 Depression Screening Interpretation: Negative Depression Screening Done: Yes [id number] - PHQ-9 Billing: Yes Source: Developed by Drs. Tk Israel, Piedad Bass, Wilfredo Valladares and colleagues, with an educational rene from [employer]. Thrive Questionnaire Date Thrive assessed: 06/11/25 I am a: Patient What is your living situation today?: I have a steady place to live Within the past 12 months, did the food you bought not last and you didn't have the money to get more?: Never true Within the past 12 months, did you worry whether your food would run out before you got money to buy more?: Never true Do you have trouble paying for medicines?: No Do you have trouble getting transportation to medical appointments?: No Do you have trouble paying your heating and electricity bill?: No Do you have trouble taking care of your child, family member or friend?: No Do you have trouble with day-to-day activities such as bathing, preparing meals, shopping, managing finances, etc.?: No Are you currently unemployed and looking for a job?: No Are you interested in more education?: No Please select the resources that you would like help with: None Currently or been in a relationship where the following occur: I choose not to a nswer THRIVE Score: 0 AUDIT C Alcohol Use Questionnaire (AUDIT-C) 1. How often do you have a drink containing alcohol?: Never Total Score: 0 TOPHER-7 AMB Questionnaire TOPHER-7 Date TOPHER - 7 assessed: 06/11/25 Feeling nervous, anxious, or on edge: 0 = Not at all Not being able to stop or control worryin = Not at all Worrying too much about different things: 0 = Not at all Trouble relaxin = Not at all Being so restless that it is hard to sit still: 0 = Not at all Becoming easily annoyed or irritable: 0 = Not at all Feeling afraid as if something awful might happen: 0 = Not at all Total TOPHER-7 score (0-4 normal; 5-9 mild; 10-14 moderate; 15-21 severe): 0 Source: Developed by Drs. Tk Israel, Piedad Bass, Wilfredo Valladares and colleagues, with an educational rene from [employer]. TOPHER-7 Assessment Billing TOPHER-7 Assessment Tool: TOPHER-7 Assessment 26739 Review of Systems Const Denies chills, Denies fatigue, Denies fever(s), Denies headache(s) and Denies weakness ENT Denies dizziness and Denies headache(s) Card Denies dyspnea Resp Denies cough, Denies dyspnea, Denies wheezing and Denies other (shortness of breath) Musc Denies numbness and Denies tingling Neuro Denies dizziness, Denies headache(s), Denies numbness, Denies tingling and Denies weakness Psych Denies anxiety and Denies depression Endo Denies fatigue Aller/Immun Denies wheezing Physical exam (Primary Care) Vital Signs: Last Vital Signs Temp 97.5 F 06/11/25 13:44 Pulse 79 06/11/25 13:44 Resp 12 06/11/25 13:44 BP 128/72 06/11/25 13:44 Pulse Ox 98 06/11/25 13:44 Oxygen Delivery Method Room Air 06/11/25 13:44 BMI result Body Mass Index 35.2 Tobacco/Smoking Status: Tobacco use Status Tobacco use date assessed 06/11/25 06/11/25 13:46 Patient Tobacco Use Status Former Tobacco user (45 06/11/25 13:46 years of not smoking) e-Cigarette/Vaping Use Never Used 06/11/25 13:46 PHQ-9: PHQ-9 Score PHQ-9: Total score 0 06/11/25 13:48 Depression Screening Interpretation: Negative Thrive Assessment: Date of Thrive Assessment Date Thrive assessed 06/11/25 06/11/25 13:46 Currently or been in a relationship where the following occur: I choose not to answer Const General: well developed; No acute distress Nutritional Appearance: well nourished Orientation/consciousness: patient oriented x3 HENMT Head: Yes normocephalic and Yes atraumatic Eyes General: appearance normal, both eyes and all related structures Pupils: Equal, round and reactive pupils present EOM: EOMs intact bilaterally Resp Effort & Inspection: normal respiratory effort Neuro General: patient oriented x3 and gait normal Cranial nerves: Yes Equal, round and reactive pupils present Psych Affect: normal affect Coding Level of Care Code Est Pt Level 4 (31856) Diagnoses Primary hypertension I10 Hypertension type: primary hypertension Hypercholesterolemia E78.00 Hypothyroidism (acquired) E03.9 Vitamin D deficiency E55.9 Additional Codes TOPHER-7 Assessment Billing - TOPHER-7 Assessment Tool: TOPHER-7 Assessment [id number] ([id number]) PHQ-9 - 41716 - PHQ-9 Billing: Yes ([id number]) Assessment & Plan Assessment & Plan (1) Hypertension: Code(s): I10 - Essential (primary) hypertension Category: Medical Qualifiers: Hypertension type: primary hypertension Qualified Code(s): I10 - Essential (primary) hypertension Plan: Blood pressure is 128/72. Good control. Goal is less than 140/90 Continue losartan as prescribed (2) Hypercholesterolemia: Code(s): E78.00 - Pure hypercholesterolemia, unspecified Category: Medical Plan: LDL cholesterol 117 Her other lipids are okay Continue working on a diet low in saturated fats and cholesterol. Encouraged diet and exercise as well as weight loss Will continue to monitor (3) Hypothyroidism (acquired): Code(s): E03.9 - Hypothyroidism, unspecified Category: Medical Plan: Thyroid hormone levels are within normal range Continue levothyroxine 88 mcg daily (4) Vitamin D deficiency: Code(s): E55.9 - Vitamin D deficiency, unspecified Category: Medical Plan: Vitamin-D level is 89 Patient does not think she is taking a supplement currently. She will check her multivitamin Will follow Plan Blood pressure is controlled. Goal is less than 140/90 Continue current medication Patient is taking levothyroxine 88 mcg daily and thyroid hormone levels are all within normal range Continue thyroxine 88 mcg daily LDL cholesterol at prior treatment. When 117 at last measurement in again 117 today. Patient lost about 6 lb since last visit Continue working on weight loss Encouraged diet low in saturated fats and cholesterol Will continue monitor Vitamin-D level is 89 Orders: Orders Comprehensive [place]. Panel Fast Today R73.01 - Impaired fasting glucose, Z00.00 - Encounter for general adult medical examination without abnormal findings Vitamin D 25-OH Total Today E55.9 - Vitamin D deficiency, unspecified Hemoglobin A1c Today R73.01 - Impaired fasting glucose Lipid Panel Today E78.00 - Pure hypercholesterolemia, unspecified, Z00.00 - Encounter for general adult medical examination without abnormal findings
[2025-06-11 13:44] VITALS: BP 128/72; PULSE 79; RESP 12; TEMP 36.4; O2SAT 98; BMI 35.2
--- OUTSIDE RECORDS SUMMARY | 2025-06-11 17:31 | XMS_ITS | Clinical Summary ---
Author Organization [facility] Address [address] [address] Phone Care Team Providers Care [employer] Name Role Phone Janes Carroll MD Primary [...] VACCINES (1 of 2) 2000 OSTEOPOROSIS SCREENING INITIAL (ONE-TIME) 10/26/2015 INFLUENZA VACCINE (#1) 2025 , 07/02/2022, 04/22/2021, Additional history exists COVID-19 VACCINE ( season) 2025 04/21/2023, 06/20/2021, 09/25/2020 PNEUMOCOCCAL VACCINES (50+ years) [...] topic Medical Devices Not on file Insurance [facility] [place] [address] [facility]IC[facility]AC[facility] [place] [address] MEDICARE REPLACEMENT MEDICARE REPLACEMENT [place] [place] [address] MEDICARE REPLACEMENT [facility] MEDICARE REPLACEMENT [place] [address] [place] [address] MEDICARE REPLACEMENT [facility] MEDIC[facility] REPLACEMENT Care Teams [employer] Relationship Specialty Start Date End Date Janes Carroll MD PCP - General Family Medicine 11/07/23 Additional Source Comments The information contained in this document represents components of the legal health record. It is not the complete legal health record.[facility]
== END 2025-06-11 14:11 | disposition home or self-care (01) ==
LOC: HO.HMCFM 13:39
PROVIDERS: PCP Family Medicine; Visit Provider Family Medicine
DX: I10 Essential (primary) hypertension (principal); E78.00 Pure hypercholesterolemia, unspecified; E03.9 Hypothyroidism, unspecified; E55.9 Vitamin D deficiency, unspecified

== ENCOUNTER → 2025-06-11 13:38 | Outpatient (BNVA) | payer MEDICARE, SELFPAY | PROVIDERS: PCP Family Medicine; Visit Provider Family Medicine | DX: I10 Essential (primary) hypertension (principal); E78.00 Pure hypercholesterolemia, unspecified; E03.9 Hypothyroidism, unspecified; E55.9 Vitamin D deficiency, unspecified; Z13.31 Encounter for screening for depression; Z13.39 Encounter for screening examination for other mental health and behavioral disorders; R73.01 Impaired fasting glucose | CPT/HCPCS: 96127; 99212 ==